=== PATIENT | female | born 1935 | race Hispanic/Latino ===

== ENCOUNTER 2016-07-17 23:12 | Emergency (ER) | payer MEDICARE, OTHER ==
[2016-07-17 23:12] VITALS: BMI 32.8
--- NOTE | 2016-07-18 00:08 | ED PDOC ---
HPI: General Adult Time Seen by Provider: 07/17/16 23:37 Chief Complaint (Nursing): GI Problem Chief Complaint (Provider): swallowed hearing aid History Per: Patient History/Exam Limitations: no limitations Onset/Duration Of Symptoms: Mins Additional History Per: Patient Additional Complaint(s): 81 y/o female presents for eval after swallowing her hearing aid. Patient states she thought she was taking her pill but forgot she had taken her hearing aid. Denies difficulty speaking, swallowing, chest pain, shortness of breath, palpitations. Patient notes nausea, and "pit" in her stomach. Past Medical History Reviewed: Historical Data, Nursing Documentation, Vital Signs Vital Signs: Last Vital Signs Temp 98 F 07/17/16 23:17 Pulse 70 07/17/16 23:17 Resp 18 07/17/16 23:17 BP 162/77 H 07/17/16 23: Pulse Ox 98 07/18/16 00:08 - Medical History PMH: Anemia, Anxiety, Arthritis, CAD, CHF, COPD, CVA, Diabetes, Deep Vein Thrombosis, Gall Bladder Disease, HTN, Hypercholesterolemia, Hypothyroidism, Peripheral Edema, Pneumonia, Chronic Kidney Disease (RENAL INSUFICIENCY), Sleep Apnea, TIA - Surgical History Surgical History: Cholecystectomy, Endoscopy - Family History Family History: States: Unknown Family Hx - Immunization History Hx Tetanus Toxoid Vaccination: Yes (received one year ago) Hx Influenza Vaccination: Yes Hx Pneumococcal Vaccination: No - Home Medications Home Medications: Ambulatory Orders Medication Instructions Recorded Clopidogrel [Plavix] 75 mg PO DAILY 05/16/13 Levothyroxine [Synthroid] 0.125 mg PO ACB 05/16/13 Rosuvastatin Calcium [Crestor] 20 mg PO HS 05/16/13 Sevelamer Carbonate [Renvela] 800 mg PO ACTID 05/16/13 Uloric 40 mg PO DAILY 02/27/14 Fenofibrate Nanocrystallized 145 mg PO HS 06/30/15 [Fenofibrate] Furosemide [Lasix] 40 mg PO BID 06/30/15 Losartan Potassium 25 mg PO DAILY 06/30/15 Multivit-Min/FA/Lycopen/Lutein 1 tab PO DAILY 06/30/15 [Centrum Silver Tablet] Vits A,C,E/Zinc/Copper [Ra 1 tab PO DAILY 06/30/15 Vision-Gurmeet + Zinc Tablet] Ergocalciferol (Vitamin D2) 50,000 unit PO QWK 03/07/16 [Vitamin D2] GlipiZIDE [Glucotrol] 10 mg PO BID 03/07/16 [id number]-[id number] Ethyl Esters [OMEGA 3] 2 cap PO BID 03/07/16 SITagliptin [Januvia] 100 mg PO DAILY 03/07/16 Docusate [Colace] 100 mg PO BID cap 03/16/16 Enoxaparin [Lovenox] 40 mg SC DAILY syr 03/16/16 Famotidine [Pepcid] 20 mg PO DAILY tab 03/16/16 - Allergies Allergies/Adverse Reactions: Allergies Allergy/AdvReac Type Severity Reaction Status Date / Time aspartame Allergy Verified 06/30/15 09:36 naproxen [From Naprosyn] Allergy Verified 06/30/15 09:35 esomeprazole magnesium AdvReac VOMITING Verified 06/30/15 07:31 [From Nexium] Review of Systems ROS Statement: Except As Marked, All Systems Reviewed And Found Negative Gastrointestinal: Positive for: Nausea, Abdominal Pain Physical Exam - Reviewed Nursing Documentation Reviewed: Yes Vital Signs Reviewed: Yes - Physical Exam Appears: Positive for: Well, Non-toxic, No Acute Distress Head Exam: Positive for: ATRAUMATIC, NORMAL INSPECTION, NORMOCEPHALIC Skin: Positive for: Normal Color Eye Exam: Positive for: Normal appearance ENT: Positive for: Normal ENT Inspection Cardiovascular/Chest: Positive for: Regular Rate, Rhythm Respiratory: Positive for: Normal Breath Sounds Gastrointestinal/Abdominal: Positive for: Normal Exam Back: Positive for: Normal Inspection Extremity: Positive for: Normal ROM Neurologic/Psych: Positive for: Alert, Oriented - ECG O2 Sat by Pulse Oximetry: 98 - Other Rad obstructive series X-Ray: Viewed By Sd X-Ray Interpretation: +FB passed level of pyloric sphincter - Progress ED Course And Treament: abdomen xray Patient educated on findings, discharged with instructions to follow up PMD 2-3 days. Advised to check stool for FB. Advised to return to ED for worsening/returning symptoms. Disposition - Clinical Impression Clinical Impression: Hx of swallowed foreign body - Patient ED Disposition Is Patient to be Admitted: No Counseled Patient/Family Regarding: Studies Performed, Diagnosis, Need For Followup - Disposition Referrals: Puneet Ramírez Jr., MD [Primary Care Provider] - Disposition: Routine/Home Disposition Time: 04:19 Condition: STABLE Additional Instructions: Follow up with primary doctor in 2-3 days. Return to ED for worsening/concerning symptoms. Instructions: Foreign Body Ingestion (ED)
[2016-07-18 04:19] VITALS: BP 145/85; PULSE 75; RESP 16; TEMP 97.9
[2016-07-18 04:20] VITALS: O2SAT 98
--- NOTE | 2016-07-18 15:08 | RAD ---
PROCEDURE: Radiographs of the chest and abdomen (obstructive series) HISTORY: swallowed hearing aid COMPARISON: No prior. TECHNIQUE: AP radiograph of the chest, with upright and supine radiographs of the abdomen. FINDINGS: CHEST: Lungs: Clear. Cardiovascular: Normal size heart. No pulmonary vascular congestion. Pleura: No pleural fluid. No pneumothorax. Other findings: None. ABDOMEN AND PELVIS: Bowel: Unremarkable bowel gas pattern. No evidence of mechanical obstruction. Free air: None. Bones: Unremarkable. Other findings: Radiopaque foreign body overlying the mid lumbar spine not associated with the adjacent lumbar vertebral bodies and likely representing ingested foreign body. IMPRESSION: Radiopaque foreign body likely within the stomach.
== END 2016-07-18 04:25 | disposition home or self-care (01) ==
LOC: H.ER 23:12
DX: T18.9XXA Foreign body of alimentary tract, part unspecified, initial encounter (principal); E11.22 Type 2 diabetes mellitus with diabetic chronic kidney disease; E78.00 Pure hypercholesterolemia, unspecified; F41.9 Anxiety disorder, unspecified; G47.30 Sleep apnea, unspecified; I12.9 Hypertensive chronic kidney disease with stage 1 through stage 4 chronic kidney disease, or unspecified chronic kidney disease; I25.10 Atherosclerotic heart disease of native coronary artery without angina pectoris; I50.9 Heart failure, unspecified; J44.9 Chronic obstructive pulmonary disease, unspecified; Z86.718 Personal history of other venous thrombosis and embolism; Z86.73 Personal history of transient ischemic attack (TIA), and cerebral infarction without residual deficits

== ENCOUNTER 2016-11-08 09:23 | Emergency (ER) | payer MEDICARE, OTHER ==
[2016-11-08 10:04] VITALS: BMI 21.5
[2016-11-08 10:08] VITALS: PULSE 77; RESP 20; TEMP 98; O2SAT 97
[2016-11-08] MEDS ORDERED: Oxycodone/Acetaminophen 5/325 mg Tab ONE (10:12)
--- NOTE | 2016-11-08 10:12 | ED PDOC ---
HPI: General Adult Time Seen by Provider: 11/08/16 09:46 Chief Complaint (Nursing): Back Pain Chief Complaint (Provider): Neck pain History Per: Patient ( ) History/Exam Limitations: no limitations Onset/Duration Of Symptoms: Days (yesterday) Current Symptoms Are (Timing): Still Present Additional Complaint(s): Pt. with neck pain that started when she moved suddenly in the morning yesterday while making pancakes. Pt. states pain goes up to the back of her head and into her upper back. No numbness, tingles, arm or leg pain, chest pain , dyspnea, fever, vision changes. No fall. Past Medical History Reviewed: Nursing Documentation, Vital Signs Vital Signs: Last Vital Signs Temp 98.0 F 11/08/16 09:48 Pulse 77 11/08/16 09:48 Resp 20 11/08/16 09:48 BP Pulse Ox 97 11/08/16 12:18 - Medical History PMH: Anemia, Anxiety, Arthritis, CAD, CHF, COPD, CVA, Diabetes, Deep Vein Thrombosis, Gall Bladder Disease, HTN, Hypercholesterolemia, Hypothyroidism, Peripheral Edema, Pneumonia, Chronic Kidney Disease (RENAL INSUFICIENCY), Sleep Apnea, TIA - Surgical History Surgical History: Cholecystectomy, Endoscopy - Family History Family History: States: Unknown Family Hx - Living Arrangements Living Arrangements: With Family - Social History Current smoker - smoking cessation education provided: No Alcohol: None Drugs: Denies - Immunization History Hx Tetanus Toxoid Vaccination: Yes (received one year ago) Hx Influenza Vaccination: Yes Hx Pneumococcal Vaccination: No - Home Medications Home Medications: Ambulatory Orders Medication Instructions Recorded Clopidogrel [Plavix] 75 mg PO DAILY 05/16/13 Levothyroxine [Synthroid] 0.125 mg PO ACB 05/16/13 Rosuvastatin Calcium [Crestor] 20 mg PO HS 05/16/13 Sevelamer Carbonate [Renvela] 800 mg PO ACTID 05/16/13 Uloric 40 mg PO DAILY 02/27/14 Fenofibrate Nanocrystallized 145 mg PO HS 06/30/15 [Fenofibrate] Furosemide [Lasix] 40 mg PO BID 06/30/15 Losartan Potassium 25 mg PO DAILY 06/30/15 Multivit-Min/FA/Lycopen/Lutein 1 tab PO DAILY 06/30/15 [Centrum Silver Tablet] Vits A,C,E/Zinc/Copper [Ra 1 tab PO DAILY 06/30/15 Vision-Gumreet + Zinc Tablet] Ergocalciferol (Vitamin D2) 50,000 unit PO QWK 03/07/16 [Vitamin D2] GlipiZIDE [Glucotrol] 10 mg PO BID 03/07/16 Russu-3-Zadm Ethyl Esters [OMEGA 3] 2 cap PO BID 03/07/16 SITagliptin [Januvia] 100 mg PO DAILY 03/07/16 Docusate [Colace] 100 mg PO BID cap 03/16/16 Enoxaparin [Lovenox] 40 mg SC DAILY syr 03/16/16 Famotidine [Pepcid] 20 mg PO DAILY tab 03/16/16 Diazepam [Valium] 2 mg PO BID PRN #6 tab 11/08/16 - Allergies Allergies/Adverse Reactions: Allergies Allergy/AdvReac Type Severity Reaction Status Date / Time aspartame Allergy RASH Verified 11/08/16 10:04 naproxen [From Naprosyn] Allergy RASH Verified 11/08/16 10:04 esomeprazole magnesium AdvReac VOMITING Verified 11/08/16 10:04 [From Nexium] Review of Systems ROS Statement: Except As Marked, All Systems Reviewed And Found Negative Musculoskeletal: Positive for: Neck Pain Neurological: Positive for: Headache Physical Exam - Reviewed Nursing Documentation Reviewed: Yes Vital Signs Reviewed: Yes - Physical Exam Appears: Positive for: Non-toxic, No Acute Distress Head Exam: Positive for: ATRAUMATIC, NORMAL INSPECTION, NORMOCEPHALIC Skin: Positive for: Normal Color, Warm, DRY Eye Exam: Positive for: EOMI, Normal appearance, PERRL ENT: Positive for: Normal ENT Inspection Neck: Positive for: Supple, Trachea Midline. Negative for: Painless ROM (pain to posterior neck diffuse and limited ROM due to pain) Cardiovascular/Chest: Positive for: Regular Rate, Rhythm Respiratory: Positive for: CNT, Normal Breath Sounds Gastrointestinal/Abdominal: Positive for: Normal Exam, Bowel Sounds, Soft. Negative for: Tenderness Back: Positive for: Normal Inspection. Negative for: L CVA Tenderness, R CVA Tenderness Extremity: Positive for: Normal ROM. Negative for: Tenderness, Pedal Edema Neurologic/Psych: Positive for: Alert, electrical instrument repairer II-XII, Oriented. Negative for: Motor/Sensory Deficits, Aphasia, Facial Droop - ECG O2 Sat by Pulse Oximetry: 97 Pulse Ox Interpretation: Normal - CT Scan/US ct Other Rad Studies (CT/US): Read By Radiologist Other Rad Interpretation: ct no acute findings - Progress ED Course And Treament: 1315: Stable. AAOx3. Pain improved. Moving neck. Daughter says she is much better. Fu with pcp. Rx. valium. [place] [employer] Aware evaluated. No findings for controlled substances. Pt. aware of addictive potential of valium. Aware of from it if consumed incorrectly. Disposition - Clinical Impression Clinical Impression: Torticollis - Patient ED Disposition Is Patient to be Admitted: No Counseled Patient/Family Regarding: Studies Performed, Diagnosis, Need For Followup, Rx Given - Disposition Referrals: [facility] [Outside] - 11/09/16 Disposition: Routine/Home Disposition Time: 13:27 Condition: STABLE Additional Instructions: Return if not better in 3 days. You are aware of the addictive potential of valium. You can or have decreased functioning from the medicine when used incorrectly. Prescriptions: Diazepam [Valium] 2 mg PO BID PRN #6 tab PRN Reason: Muscle Spasm Instructions: Muscle Spasm (ED)
[2016-11-08] MEDS: Oxycodone/Acetaminophen 5/325 mg Tab PO ONE (10:15)
--- NOTE | 2016-11-08 11:23 | CT ---
PROCEDURE: CT HEAD WITHOUT CONTRAST. HISTORY: headache COMPARISON: None available. TECHNIQUE: Axial computed tomography images were obtained through the head/brain without intravenous contrast. Radiation dose: Total exam DLP = 870.23 mGy-cm. This CT exam was performed using one or more of the following dose reduction techniques: Automated exposure control, adjustment of the mA and/or kV according to patient size, and/or use of iterative reconstruction technique. FINDINGS: HEMORRHAGE: No acute parenchymal, subarachnoid nor extra-axial hemorrhage. BRAIN: Large chronic infarct involving the left temporal lobe extending posteriorly and superiorly into the left posterior temporoparietal watershed zone involving some of the left parietal operculum. Overlying sulcal enlargement due to the aforementioned infarct. Questionable chronic ischemic changes in the left lateral elis. . Mild chronic periventricular white matter ischemic changes. Mild moderate generalized volume loss not withstanding. Minimal partially calcified atherosclerotic plaque changes both carotid siphons. VENTRICLES: There is mild asymmetry of the lateral ventricles left-sided which is slightly larger than the right likely due to ex vacuo dilatation secondary to the aforementioned infarct. No obstructive hydrocephalus. CALVARIUM: No acute calvarial fractures. PARANASAL SINUSES: Unremarkable as visualized. No significant inflammatory changes. MASTOID AIR CELLS: Unremarkable as visualized. No inflammatory changes. OTHER FINDINGS: Changes of bilateral cataract surgery. IMPRESSION: No acute intracranial hemorrhage. Large chronic left MCA territory branch infarct with overlying sulcal enlargement and ex vacuo dilatation of the left lateral ventricle. Questionable chronic ischemic changes left lateral elis. Mild chronic periventricular white matter ischemic changes. Mild moderate atrophy
--- NOTE | 2016-11-08 11:48 | CT ---
PROCEDURE: CT scan cervical spine 11/08/2016 HISTORY: Neck pain. Stiff neck COMPARISON: No prior TECHNIQUE: Axial computed tomography images were obtained of the cervical spine without the use of intravenous contrast. Coronal and sagittal reformatted images were created and reviewed. Radiation dose: Total exam DLP = 554.67 mGy-cm. This CT exam was performed using one or more of the following dose reduction techniques: Automated exposure control, adjustment of the mA and/or kV according to patient size, and/or use of iterative reconstruction technique. FINDINGS: VERTEBRAE: No acute compression fractures no retropulsed fragments. Vertebral bodies exhibit normal stature of. There is slight straightening of the normal mid and lower cervical lordosis which may in part be secondary to patient positioning in the gantry however underlying element of muscle spasm may contribute to clinic correlation. Vertebral bodies otherwise normally aligned. Facets also normally aligned. DISCS/SPINAL CANAL/NEURAL FORAMINA: Mild multilevel degenerative spondylosis. At the C2-C3 level, there is minor posterior disc space narrowing. Small osteophytic ridge contiguous with slightly overgrown uncovertebral joints right greater than left. The facets also hypertrophic. Central canal appears adequate. Right exit foramen is narrowed. Left exit foramen is marginal to adequate wound. . At the C3-C4 level, there is mild posterior disc space narrowing. No disc herniation however mildly hypertrophic uncovertebral joints right greater than left are noted. The facets also hypertrophic right greater than left. The overall central canal appears adequate despite some mild compressive effects along anterolateral borders of the thecal sac. The right exit foramen is stenotic. Left exit foramen is mildly narrowed. At the C4-C5 level, there is relatively adequate disc height. Small asymmetric osteophytic ridge disc complex larger on the right than left and contiguous with hypertrophic uncovertebral joints. There is mild compressive effects along the anterolateral border of the thecal sac appears to reach the right anterolateral margin of the spinal cord. The overall central canal appears adequate. Facets are hypertrophic. Right exit foramen is stenotic. Left exit foramen is mildly narrowed. At the C5-C6 level, disc space narrowing with cortical endplate irregularity and small osteophytic ridge disc complex contiguous with hypertrophic uncovertebral joints. Facets are hypertrophic. There is mild focal compression of the ventral surface of the thecal sac and possibly spinal cord centrally and to the right more so than left. The overall central canal however is adequate. Facets are mildly hypertrophic. Exit foramina appear narrowed. At the C6-C7 level, there is disc space narrowing with small broad-based osteophytic ridge disc complex that presumably flattens the ventral surface of the thecal sac and may also reach the ventral surface of the cord however due to mild streak and beam hardening artifact at this level evaluation slightly limited. . Prevertebral and paraspinal soft tissues unremarkable. There does appear to be mild pleural thickening and adjacent parenchymal scarring right anteromedial lung apex. . No evidence of effusion or apical pneumothorax PARASPINAL SOFT TISSUES: OTHER FINDINGS: As above. IMPRESSION: Mild multilevel degenerative spondylosis with varying degrees of foraminal stenosis on more so on the right as above. No acute compression fractures.
[2016-11-08 14:02] VITALS: BP 116/61
== END 2016-11-08 13:36 | disposition home or self-care (01) ==
LOC: H.ER 09:23
DX: M43.6 Torticollis (principal); E03.9 Hypothyroidism, unspecified; E11.22 Type 2 diabetes mellitus with diabetic chronic kidney disease; E78.00 Pure hypercholesterolemia, unspecified; F41.9 Anxiety disorder, unspecified; I12.9 Hypertensive chronic kidney disease with stage 1 through stage 4 chronic kidney disease, or unspecified chronic kidney disease; I25.10 Atherosclerotic heart disease of native coronary artery without angina pectoris; Z86.718 Personal history of other venous thrombosis and embolism; Z86.73 Personal history of transient ischemic attack (TIA), and cerebral infarction without residual deficits
CPT/HCPCS: 70450; 72125; 96372; 99283; J2270

== ENCOUNTER 2017-10-19 16:42 | Inpatient (IN) | payer MEDICARE, OTHER ==
--- NOTE | 2017-10-19 18:55 | ED PDOC ---
Lower Extremity Pain/Injury Time Seen by Provider: 10/19/17 17:53 Chief Complaint (Nursing): Lower Extremity Problem/Injury Chief Complaint (Provider): Lower Extremity Problem/Injury History Per: Patient History/Exam Limitations: no limitations Onset/Duration Of Symptoms: Persistent Current Symptoms Are (Timing): Still Present Additional Complaint(s): 82 year old female with pmHx of CVA, HTN, DM II, and DVT of the RLE, referred to ED by PMD for an evaluation of worsening pain and swelling of bilateral legs. Patient states symptoms are exacerbated with touch and walking. She denies any shortness of breath, palpitations, cough, fever, nausea, vomiting, or diarrhea. Upon entering room, patient had her prescription bottles lined up on a table and tried to explain to provider the times and reasons for medications. It appears patient is confused about which pills to take for her medical conditions i.e. patient states that she "takes Januvia when she doesn't want to pee". Patient additionally reports having a home-health aid but otherwise lives alone and manages her medications daily. Referral note from PMD states pt has known right DVT. PMD: Dr. Puneet Ramírez Jr. Past Medical History Reviewed: Historical Data, Nursing Documentation, Vital Signs Vital Signs: Last Vital Signs Temp Pulse 79 10/19/17 16:52 Resp 19 10/19/17 16:52 BP 151/75 H 10/19/17 16:52 Pulse Ox 98 10/19/17 16:52 - Medical History PMH: Anemia, Anxiety, Arthritis, CAD, CHF, COPD, CVA, Dementia, Diabetes, Deep Vein Thrombosis (RLE), Gall Bladder Disease, HTN, Hypercholesterolemia, Hypothyroidism, Peripheral Edema, Pneumonia, Chronic Kidney Disease (RENAL INSUFICIENCY), Sleep Apnea, TIA - Surgical History Surgical History: Cholecystectomy, Endoscopy - Family History Family History: States: Unknown Family Hx - Immunization History Hx Tetanus Toxoid Vaccination: Yes (received one year ago) Hx Influenza Vaccination: Yes Hx Pneumococcal Vaccination: No - Home Medications Home Medications: Ambulatory Orders Medication Instructions Recorded Clopidogrel [Plavix] 75 mg PO DAILY 05/16/13 Levothyroxine [Synthroid] 0.125 mg PO ACB 05/16/13 Rosuvastatin Calcium [Crestor] 20 mg PO HS 05/16/13 Sevelamer Carbonate [Renvela] 800 mg PO ACTID 05/16/13 Uloric 40 mg PO DAILY 02/27/14 Fenofibrate Nanocrystallized 145 mg PO HS 06/30/15 [Fenofibrate] Furosemide [Lasix] 40 mg PO BID 06/30/15 Losartan Potassium 25 mg PO DAILY 06/30/15 Multivit-Min/FA/Lycopen/Lutein 1 tab PO DAILY 06/30/15 [Centrum Silver Tablet] Vits A,C,E/Zinc/Copper [Ra 1 tab PO DAILY 06/30/15 Vision-Gurmeet + Zinc Tablet] Ergocalciferol (Vitamin D2) 50,000 unit PO QWK 03/07/16 [Vitamin D2] GlipiZIDE [Glucotrol] 10 mg PO BID 03/07/16 Cegqw-5-Zlxi Ethyl Esters [OMEGA 3] 2 cap PO BID 03/07/16 SITagliptin [Januvia] 100 mg PO DAILY 03/07/16 Docusate [Colace] 100 mg PO BID cap 03/16/16 Famotidine [Pepcid] 20 mg PO DAILY tab 03/16/16 Methylprednisolone [Medrol Dose 4 mg PO DAILY #21 mg 11/11/16 Pack (21 tabs)] diaZEpam [Valium] 5 mg PO Q6H PRN #8 tab 11/11/16 - Allergies Allergies/Adverse Reactions: Allergies Allergy/AdvReac Type Severity Reaction Status Date / Time aspartame Allergy RASH Verified 09/07/17 22:16 naproxen [From Naprosyn] Allergy RASH Verified 09/07/17 22:16 esomeprazole magnesium AdvReac VOMITING Verified 09/07/17 22:16 [From Nexium] Review of Systems ROS Statement: Except As Marked, All Systems Reviewed And Found Negative Cardiovascular: Negative for: Palpitations Respiratory: Negative for: Cough, Shortness of Breath Gastrointestinal: Negative for: Nausea, Vomiting, Diarrhea Musculoskeletal: Positive for: Leg Pain (bilaterally with swelling) Physical Exam - Reviewed Nursing Documentation Reviewed: Yes Vital Signs Reviewed: Yes - Physical Exam Appears: Positive for: No Acute Distress ENT: Positive for: Other ([employer] - had to shout towards patient) Cardiovascular/Chest: Positive for: Regular Rate, Rhythm. Negative for: Murmur Respiratory: Positive for: Normal Breath Sounds. Negative for: Decreased Breath Sounds, Wheezing, Respiratory Distress Extremity: Positive for: Tenderness (bilateral legs on palpation), Pedal Edema ( 2+ pitting bilaterally from knees to feet) Neurologic/Psych: Positive for: Alert (x3), Oriented - Laboratory Results Result Diagrams: 10/20/17 06:45 10/21/17 06:30 - ECG O2 Sat by Pulse Oximetry: 98 (RA) Pulse Ox Interpretation: Normal Medical Decision Making Medical Decision Making: Time: 1826 Initial Plan: workup for bilateral leg edema r/o DVT. Possible fluid overload, however, lungs are clear on auscultation. * Labs * EKG * CXR * Accucheck * US duplex LE (BONNIE) Time: 1899 --Patient is sign out to Dr. Ventura, pending ED workup and final disposition. Scribe Attestation: Documented by Adriana Escalera, acting as a scribe for Chaya Ramos MD. Provider Scribe Attestation: All medical record entries made by the Scribe were at my direction and personally dictated by me. I have reviewed the chart and agree that the record accurately reflects my personal performance of the history, physical exam, medical decision making, and the department course for this patient. I have also personally directed, reviewed, and agree with the discharge instructions and disposition. Disposition - Clinical Impression Clinical Impression: Cellulitis of left lower extremity - Disposition Disposition: Transfer of Care Disposition Time: 19:00 Condition: FAIR Patient Signed Over To: Bernard Ventura Handoff Comments: pending ED workup and final disposition.
[2017-10-19 19:04] LABS: PROTHROMBIN TIME 11.5 Seconds (9.8-13.1)
[2017-10-19 19:06] LABS: PARTIAL THROMBOPLASTIN TIME 27.8 Seconds (25.6-37.1)
[2017-10-19 19:07] LABS: VENOUS BLOOD GAS BASE EXCESS 4.5 mmol/L (0.0-2.0); VENOUS BLOOD GAS PCO2 54 mmHg (40-60); VENOUS BLOOD GAS PO2 20 mm/Hg (30-55); VENOUS BLOOD PH 7.37 (7.32-7.43)
[2017-10-19 19:07] LABS: CALCIUM 10.1 mg/dL (8.4-10.2)
[2017-10-19 19:09] LABS: BASO % 0.2 % (0.0-2.0); EOS % 0.1 % (0.0-4.0); HEMOGLOBIN 13.7 g/dL (12.0-16.0); LYMPH % 10.5 % (20.0-40.0); MEAN CELL VOLUME 93.9 fl (81.0-99.0); MEAN CORPUSCULAR HGB CONC 34.1 g/dL (33.0-37.0); MEAN PLATELET VOLUME 9.3 fl (7.2-11.7); MONO # 0.2 K/uL (0.0-0.8); NEUT # 8.2 K/uL (1.8-7.0); NEUT % 87.2 % (50.0-75.0); RBC 4.27 Mil/uL (3.80-5.20); RED CELL DISTRIBUTION WIDTH 12.9 % (11.5-14.5); WHITE BLOOD COUNT 9.4 K/uL (4.8-10.8)
--- NOTE | 2017-10-19 19:35 | ED PDOC ---
- Laboratory Results Result Diagrams: 10/19/17 18:54 10/19/17 18:54 - ECG O2 Sat by Pulse Oximetry: 98 (RA) Medical Decision Making Medical Decision Making: Time: 1899 --Patient is endorsed to provider by Dr. Ramos, pending lab and US results. Time: 2102 --US LE (claudine) FINDINGS: Right deep veins: Unremarkable. No DVT in the right common femoral, femoral, proximal deep femoral or popliteal veins. The veins demonstrate normal color flow, are normally compressible, with normal phasic flow and/or augmentation response. Right superficial veins: Unremarkable. No thrombus in the visualized left great saphenous vein. Left deep veins: Unremarkable. No DVT in the left common femoral, femoral, proximal deep femoral or popliteal veins. The veins demonstrate normal color flow, are normally compressible, with normal phasic flow and/or augmentation response. Left superficial veins: Unremarkable. No thrombus in the visualized left great saphenous vein. Soft tissues: Right popliteal cyst measures 1.3 x 1.6 x 0.5 cm. Left popliteal cyst measures 2.1 x 0.7 x 0.8. Superficial soft tissue right calf lateral soft tissue focal hypoattenuation measures 2.9 x 1 x 2 cm without evidence of drainable fluid. IMPRESSION: 1. No deep venous thrombosis of the bilateral lower extremities. 2. Small bilateral popliteal cysts. 3. Superficial right calf lateral soft tissue focal hypoattenuation measures 2.9 x 1 x 2 cm. Please correlate clinically for potential cellulitis. Time: 2149 --Re-eval: large lesion noted on right heel. Daughter, presently at bed-side, states that lesion has been present for 2 weeks with evaluation. Podiatry consult ordered. Time: 2153 --Labs reviewed: no significant clinical abnormality. Upon re-evaluation, patient has erythema, warmth and induration to left foot to mid-tibia surface consistent with cellulits of the LLE. Patient will be admitted to hospital. Case referred to medical service, Dr. Delcid. Scribe Attestation: Documented by Adriana Escalera, acting as a scribe for Bernard Ventura MD. Provider Scribe Attestation: All medical record entries made by the Scribe were at my direction and personally dictated by me. I have reviewed the chart and agree that the record accurately reflects my personal performance of the history, physical exam, medical decision making, and the department course for this patient. I have also personally directed, reviewed, and agree with the discharge instructions and disposition.Bernard Ventura MD Disposition Discussed With DrKye: Ciro Delcid Doctor Will See Patient In The: Hospital Counseled Patient/Family Regarding: Studies Performed, Diagnosis, Need For Followup - Clinical Impression Clinical Impression: Cellulitis of left lower extremity - POA Present On Arrival: None - Disposition Disposition: Admitted as In-Patient Disposition Time: 21:50 Condition: FAIR Forms: [email or web address] (Turkmen)
[2017-10-19 21:41] LABS: SQUAMOUS EPITHIAL < 1 /hpf (0-5); URINE BACTERIA RARE (<OCC); URINE BILIRUBIN NEGATIVE (NEGATIVE); URINE BLOOD NEGATIVE (NEGATIVE); URINE CLARITY CLEAR (Clear); URINE COLOR STRAW (YELLOW); URINE GLUCOSE (UA) >=500 mg/dL (Normal); URINE HYALINE CAST 0-2 /hpf (0-2); URINE LEUKOCYTE ESTERASE NEG Leu/uL (Negative); URINE PROTEIN NEGATIVE (NEGATIVE); URINE UROBILINOGEN 0.2-1.0 mg/dL (0.2-1.0)
[2017-10-19] MEDS ORDERED: Piperacillin/Tazobact 3.375 GM in Sodium Chloride 0.9% 100 ML IV STA (21:42)
[2017-10-19] MEDS ORDERED: Piperacillin/Tazobact 3.375 gm Inj IVPB ONE (21:58)
[2017-10-20] MEDS: Insulin Lispro (humaLOG) 100 Units/ml Inj SC SCH ×4 (06:38→22:18)
[2017-10-20 07:05] LABS: HEMOGLOBIN 12.1 g/dL (12.0-16.0); MEAN CELL VOLUME 93.1 fl (81.0-99.0); MEAN CORPUSCULAR HEMOGLOBIN 31.2 pg (27.0-31.0); MEAN CORPUSCULAR HGB CONC 33.5 g/dL (33.0-37.0); RBC 3.89 Mil/uL (3.80-5.20); RED CELL DISTRIBUTION WIDTH 12.7 % (11.5-14.5); WHITE BLOOD COUNT 12.8 K/uL (4.8-10.8)
[2017-10-20 07:14] LABS: ALB/GLOB RATIO 1.5 (1.0-2.1); ALBUMIN 3.9 g/dL (3.5-5.0); CALCIUM 9.8 mg/dL (8.4-10.2)
--- NOTE | 2017-10-20 08:05 | RAD ---
Date of service: 10/19/2017 HISTORY: possible admission COMPARISON: No prior. FINDINGS: LUNGS: No active pulmonary disease. PLEURA: No significant pleural effusion identified, no pneumothorax apparent. CARDIOVASCULAR: Normal. OSSEOUS STRUCTURES: No significant abnormalities. VISUALIZED UPPER ABDOMEN: Normal. OTHER FINDINGS: None. IMPRESSION: No active disease.
[2017-10-20] MEDS: Piperacillin/Tazobact 3.375 GM in Sodium Chloride 0.9% 100 ML IVPB SCH ×2 (08:53→16:53)
[2017-10-20] MEDS ORDERED: Enoxaparin 30 mg Syringe SC SCH (09:00)
--- NOTE | 2017-10-20 09:20 | CARD ---
APPROVED REPORT Date of service: 10/19/2017 EKG Measurement Heart [id number] <Conclusion> Normal sinus rhythm Nonspecific ST and T wave abnormality Abnormal ECG
[2017-10-20] MEDS ORDERED: ULORIC 40 MG PO SCH (13:00)
[2017-10-20] MEDS: Insulin Detemir 100 Units/ml Inj SC SCH (22:00)
[2017-10-21] MEDS: Piperacillin/Tazobact 3.375 GM in Sodium Chloride 0.9% 100 ML IVPB SCH ×3 (01:07→16:10)
[2017-10-21] MEDS: Levothyroxine 125 MCG TAB PO SCH (06:30)
[2017-10-21 07:33] LABS: ALB/GLOB RATIO 1.5 (1.0-2.1); ALBUMIN 3.5 g/dL (3.5-5.0); CALCIUM 9.4 mg/dL (8.4-10.2)
[2017-10-21] MEDS: Insulin Lispro (humaLOG) 100 Units/ml Inj SC SCH ×4 (08:21→22:06)
[2017-10-21 11:32] VITALS: BMI 31.6
[2017-10-21] MEDS: Omega-3-Acid Ethyl Esters 1 GM Cap PO SCH (21:22)
[2017-10-21] MEDS: VITS A C E PO SCH (21:23)
[2017-10-21] MEDS: ZINC PO SCH (21:23)
[2017-10-21] MEDS: COPPER PO SCH (21:23)
[2017-10-21] MEDS: Insulin Detemir 100 Units/ml Inj SC SCH (22:10)
[2017-10-22] MEDS: Piperacillin/Tazobact 3.375 GM in Sodium Chloride 0.9% 100 ML IVPB SCH ×3 (00:18→16:22)
[2017-10-22] MEDS: Levothyroxine 125 MCG TAB PO SCH (06:49)
[2017-10-22] MEDS: Insulin Lispro (humaLOG) 100 Units/ml Inj SC SCH ×4 (08:26→22:25)
[2017-10-22] MEDS: Omega-3-Acid Ethyl Esters 1 GM Cap PO SCH ×2 (08:29→21:02)
[2017-10-22] MEDS: Multivitamin With Minerals Tab PO SCH (08:30)
[2017-10-22] MEDS: VITS A C E PO SCH ×2 (08:30→21:02)
[2017-10-22] MEDS: ZINC PO SCH ×2 (08:30→21:02)
[2017-10-22] MEDS: COPPER PO SCH ×2 (08:30→21:02)
--- NOTE | 2017-10-22 10:13 | US ---
Date of service: 10/19/2017 PROCEDURE: Bilateral lower extremity venous duplex Doppler. HISTORY: rule out DVT BL COMPARISON: None available. TECHNIQUE: Bilateral common femoral, superficial femoral, popliteal and posterior tibial veins were evaluated. Flow was assessed with color Doppler, compressibility, assessment of phasic flow and augmentation response. FINDINGS: COMMON FEMORAL VEIN: Right CFV: Unremarkable. Left CFV: Unremarkable. SUPERFICIAL FEMORAL VEIN: Right SFV: Unremarkable. Left SFV: Unremarkable. POPLITEAL VEIN: Right Popliteal: Unremarkable. Left Popliteal: Unremarkable. POSTERIOR TIBIAL VEIN: Right PTV: Unremarkable. Left PTV: Unremarkable. OTHER FINDINGS: There is evidence of small bilateral popliteal cyst. Popliteal cyst on the right measures 1.3 x 1.6 x 0.5 centimeters. Popliteal cyst on the left measures 2.1 x 0.7 x 0.8 centimeters. In addition there is a nonspecific area of irregular hypoechoic echogenicity in the medial right mid calf region measuring 2.9 x 1 x 1 2 centimeters. This may reflect a focal area of cellulitis or other inflammatory/infectious process and should be correlated clinically. IMPRESSION: No evidence of deep venous thrombosis. Nonspecific area of hypo echogenicity in the soft tissues of the medial right calf. Finding may reflect cellulitis or other early infection such as abscess although no focal fluid collection was seen. This should be further correlated clinically. MRI may prove helpful as clinically indicated. This agrees with preliminary report provided by the on-call radiologist. Emergency room position was notified of this finding at the time of the preliminary report.
--- NOTE | 2017-10-22 15:25 | US ---
Date of service: 10/20/2017 PROCEDURE: Duplex ultrasound of the bilateral lower extremity arteries. HISTORY: leg pain COMPARISON: None available. TECHNIQUE: Grayscale and duplex Doppler evaluation of the bilateral common femoral, superficial femoral, popliteal, posterior tibial and dorsalis pedis arteries was performed.. FINDINGS: RIGHT LOWER EXTREMITY: RIGHT COMMON FEMORAL ARTERY: Mild intimal thickening. Maximal flow velocity of 121 cm/s. RIGHT SUPERFICIAL FEMORAL ARTERY: Widely patent. Maximal flow velocity of 147 cm/s. RIGHT POPLITEAL ARTERY:Widely patent. Maximal flow velocity of 102 cm/s. RIGHT POSTERIOR TIBIAL ARTERY: Widely patent. Maximal flow velocity of 68 cm/s. RIGHT DORSALIS PEDIS ARTERY: Widely patent. Maximal flow velocity of 89 cm/s. LEFT LOWER EXTREMITY: LEFT COMMON FEMORAL ARTERY: Mild intimal thickening. Maximal flow velocity of 110 cm/s. LEFT SUPERFICIAL FEMORAL ARTERY: Widely patent. Maximal flow velocity of 137 cm/s. LEFT POPLITEAL ARTERY:Widely patent. Maximal flow velocity of 94 cm/s. LEFT POSTERIOR TIBIAL ARTERY: Widely patent. Maximal flow velocity of 76 cm/s. LEFT DORSALIS PEDIS ARTERY: Widely patent. Maximal flow velocity of 110 cm/s. OTHER FINDINGS: All triphasic flow throughout both extremities. IMPRESSION: All triphasic flow. Velocities are within normal limits. No peak systolic velocity elevation to suggest hemodynamic stenosis.
[2017-10-22] MEDS: Enoxaparin 30 mg Syringe SC SCH (16:22)
[2017-10-22] MEDS: Insulin Detemir 100 Units/ml Inj SC SCH (22:32)
--- NOTE | 2017-10-22 23:53 | CP.PCM.HP ---
History of Present Illness - History of Present Illness History of Present Illness: This is an 82 y/o female admitted for worsening of leg pains left more than the right the past two weeks. Patient has a known DVT on the right leg Has a hx of DM 2 PVD? , HTN Hyperlipidemia , renal insufficiency, and CHF? Currently on a lot of medications. She had seen her PMD who noted increase swelling and redness of the left leg hence was advised Er eval. She denies having any fever. Present on Admission - Present on Admission Any Indicators Present on Admission: No History of DVT/PE: No History of Uncontrolled Diabetes: Yes Urinary Catheter: No Decubitus Ulcer Present: No Review of Systems - Musculoskeletal Additional comments: leg pains Past Patient History - Infectious Disease Hx of Infectious Diseases: None - Tetanus Immunizations Tetanus Immunization: Unknown - Past Medical History & Family History Past Medical History?: Yes - Past Social History Smoking Status: Never Smoked - CARDIAC Hx Congestive Heart Failure: Yes Hx Hypercholesterolemia: Yes Hx Hypertension: Yes Hx Peripheral Edema: Yes - PULMONARY Hx Chronic Obstructive Pulmonary Disease (COPD): Yes Hx Pneumonia: Yes Hx Sleep Apnea: Yes - NEUROLOGICAL Hx Dementia: Yes Hx Transient Ischemic Attacks (TIA): Yes - HEENT Hx HEENT Problems: Yes Other/Comment: Both ears hard of hearing - RENAL Hx Chronic Kidney Disease: Yes (RENAL INSUFICIENCY) - ENDOCRINE/METABOLIC Hx Hypothyroidism: Yes - HEMATOLOGICAL/ONCOLOGICAL Hx Anemia: Yes - INTEGUMENTARY Hx Dermatological Problems: Yes Hx Ward: Yes (SCARRING RIGHT HAND) Hx Cellulitis: Yes Other/Comment: SURGICAL TREATMENT TO RIGHT LOWER LEG, UNSURE OF EXACT DIAGNOSIS - MUSCULOSKELETAL/RHEUMATOLOGICAL Hx Arthritis: Yes - GASTROINTESTINAL Hx Gall Bladder Disease: Yes - GENITOURINARY/GYNECOLOGICAL Hx Genitourinary Disorders: No - PSYCHIATRIC Hx Anxiety: Yes - SURGICAL HISTORY Hx Cholecystectomy: Yes - ANESTHESIA Hx Anesthesia: Yes Hx Anesthesia Reactions: No Hx Malignant Hyperthermia: No Meds Home Medications: Home Medication List Medication Instructions Recorded Confirmed Type Piperacill/Tazo 3.375gm in Dex 3.375 gm IVPB Q8 7 Days bag 10/23/17 Rx [Zosyn 3.375 Gm IV] Allergies/Adverse Reactions: Allergies Allergy/AdvReac Type Severity Reaction Status Date / Time aspartame Allergy RASH Verified 10/23/17 16:53 naproxen [From Naprosyn] Allergy RASH Verified 10/23/17 16:53 esomeprazole magnesium AdvReac VOMITING Verified 10/23/17 16:53 [From Nexium] Physical Exam - Head Exam Head Exam: NORMAL INSPECTION - Eye Exam Eye Exam: Normal appearance - ENT Exam ENT Exam: Mucous Membranes Moist - Respiratory Exam Respiratory Exam: NORMAL BREATHING PATTERN - Cardiovascular Exam Cardiovascular Exam: REGULAR RHYTHM - GI/Abdominal Exam GI & Abdominal Exam: Normal Bowel Sounds - Extremities Exam Extremities exam: Positive for: joint swelling Additional comments: tenderness posterior left lower leg just below calf muscle - Neurological Exam Neurological exam: CN II-XII Intact, Oriented x3 Results - Vital Signs Recent Vital Signs: Last Vital Signs Temp 98 F 10/22/17 16:08 Pulse 52 L 10/22/17 16:08 Resp 20 10/22/17 16:08 BP 111/67 10/22/17 16:08 Pulse Ox 95 10/22/17 16:08 - Labs Result Diagrams: 10/23/17 06:25 10/23/17 06:25 Labs: Laboratory Results - last 24 hr 10/22/17 10/22/17 10/22/17 06:04 10:55 16:05 POC Glucose (mg/dL) 147 H 272 H 104 10/22/17 21:11 POC Glucose (mg/dL) 144 H Assessment & Plan (1) Cellulitis of left lower extremity Status: Acute (2) Diabetes mellitus type 2, uncontrolled Status: Acute (3) Hypertension Status: Acute (4) Hypertriglyceridemia Status: Acute (5) Hyperlipidemia Status: Chronic - Assessment and Plan (Free Text) Plan: start IV antibiotics get US venous and arterial doppler lower ext accucheck adjust meds decrease lasix start phys therapy pain meds.
--- NOTE | 2017-10-22 23:56 | CP.PCM.PN ---
Subjective - Date & Time of Evaluation Date of Evaluation: 10/21/17 Time of Evaluation: 13:00 - Subjective Subjective: Patient continues to have pain on the left leg. tender to touch. Arterial and venous doppler showed possible cellulitis. There was no evidence of DVT. Objective - Vital Signs/Intake and Output Vital Signs (last 24 hours): Temp Pulse Resp BP Pulse Ox 98 F 52 L 20 111/67 95 10/22/17 16:08 10/22/17 16:08 10/22/17 16:08 10/22/17 16:08 10/22/17 16:08 - Medications Medications: Current Medications Atorvastatin Calcium (Lipitor) 20 mg PO [facility] Last Admin: 10/22/17 21:02 Dose: 20 mg Clopidogrel Bisulfate (Plavix) 75 mg PO DAILY [facility] Last Admin: 10/22/17 08:29 Dose: 75 mg Enoxaparin Sodium (Lovenox) 30 mg SC DAILY [facility] PRN Reason: Protocol Last Admin: 10/22/17 16:22 Dose: 30 mg Ergocalciferol (Drisdol 50,000 Intl Units Cap) 1 cap PO QWK [facility] Fenofibrate (Tricor) 145 mg PO [facility] Last Admin: 10/22/17 21:02 Dose: 145 mg Furosemide (Lasix) 40 mg PO DAILY [facility] Last Admin: 10/22/17 08:28 Dose: 40 mg Glipizide (Glucotrol) 10 mg PO ACB [facility] Last Admin: 10/22/17 08:26 Dose: 10 mg Home Med (Uloric) 40 mg PO QOD [facility] Home Med (Vits A,C,E/Zinc/Copper [Ra Vision-Gurmeet + Zinc Tablet]) 1 tab PO BID@ 0900,2100 [facility] Last Admin: 10/22/17 21:02 Dose: 1 tab Piperacillin Sod/Tazobactam (Sod 3.375 gm/ Sodium Chloride) 100 mls @ 100 mls/ hr IVPB Q8 [facility] PRN Reason: Protocol Last Admin: 10/22/17 16:22 Dose: 100 mls/hr Insulin Detemir (Levemir) 10 units SC [facility] Last Admin: 10/22/17 22:32 Dose: 10 u Insulin Human Lispro (Humalog) 0 units SC ACCU-CHECK [facility] PRN Reason: Protocol Last Admin: 10/22/17 22:25 Dose: Not Given Levothyroxine Sodium (Synthroid) 125 mcg PO ACB [facility] Last Admin: 10/22/17 06:49 Dose: 125 mcg Multivitamins/Minerals (Therapeutic-M Tab) 1 tab PO DAILY [facility] Last Admin: 10/22/17 08:30 Dose: 1 tab Ozbfs-4-Xalu Ethyl Esters (Lovaza) 2 gm PO BID@0900,2100 [facility] Last Admin: 10/22/17 21:02 Dose: 2 gm Sevelamer Carbonate (Renvela) 800 mg PO ACTID [facility] Last Admin: 10/22/17 16:22 Dose: 800 mg Sitagliptin Phosphate (Januvia) 50 mg PO DAILY [facility] Last Admin: 10/22/17 08:28 Dose: 50 mg - Labs Labs: 10/20/17 06:45 10/21/17 06:30 PT 11.5 Seconds (9.8-13.1) 10/19/17 18:54 INR 1.0 10/19/17 18:54 APTT 27.8 Seconds (25.6-37.1) 10/19/17 18:54 - Head Exam Head Exam: NORMAL INSPECTION - Eye Exam Eye Exam: Normal appearance - Respiratory Exam Respiratory Exam: Clear to Ausculation Bilateral - Cardiovascular Exam Cardiovascular Exam: REGULAR RHYTHM - GI/Abdominal Exam GI & Abdominal Exam: Normal Bowel Sounds - Extremities Exam Additional comments: tenderness on the posterior aspect of the left lower leg just below the calf muscle. - Neurological Exam Neurological Exam: Awake, Oriented x3 Assessment and Plan (1) Cellulitis of left lower extremity Status: Acute (2) DJD (degenerative joint disease) Status: Acute (3) Diabetes mellitus type 2, uncontrolled Status: Acute (4) CKD stage 3 due to type 2 diabetes mellitus Status: Acute - Assessment and Plan (Free Text) Plan: Cont meds cont tx cont iv antibiotics phys therapy pain meds.
--- NOTE | 2017-10-22 23:58 | CP.PCM.PN ---
Subjective - Date & Time of Evaluation Date of Evaluation: 10/22/17 Time of Evaluation: 12:00 - Subjective Subjective: Patient has less pain today Noted elevated WBC the other day Has no fever. arterial US showed patent arteries and no sx of PAD, Objective - Vital Signs/Intake and Output Vital Signs (last 24 hours): Temp Pulse Resp BP Pulse Ox 98 F 52 L 20 111/67 95 10/22/17 16:08 10/22/17 16:08 10/22/17 16:08 10/22/17 16:08 10/22/17 16:08 - Medications Medications: Current Medications Atorvastatin Calcium (Lipitor) 20 mg PO HS [facility] Last Admin: 10/22/17 21:02 Dose: 20 mg Clopidogrel Bisulfate (Plavix) 75 mg PO DAILY [facility] Last Admin: 10/22/17 08:29 Dose: 75 mg Enoxaparin Sodium (Lovenox) 30 mg SC DAILY [facility] PRN Reason: Protocol Last Admin: 10/22/17 16:22 Dose: 30 mg Ergocalciferol (Drisdol 50,000 Intl Units Cap) 1 cap PO QWK [facility] Fenofibrate (Tricor) 145 mg PO HS [facility] Last Admin: 10/22/17 21:02 Dose: 145 mg Furosemide (Lasix) 40 mg PO DAILY [facility] Last Admin: 10/22/17 08:28 Dose: 40 mg Glipizide (Glucotrol) 10 mg PO ACB [facility] Last Admin: 10/22/17 08:26 Dose: 10 mg Home Med (Uloric) 40 mg PO QOD [facility] Home Med (Vits A,C,E/Zinc/Copper [Ra Vision-Gurmeet + Zinc Tablet]) 1 tab PO BID@ 0900,2100 [facility] Last Admin: 10/22/17 21:02 Dose: 1 tab Piperacillin Sod/Tazobactam (Sod 3.375 gm/ Sodium Chloride) 100 mls @ 100 mls/ hr IVPB Q8 [facility] PRN Reason: Protocol Last Admin: 10/22/17 16:22 Dose: 100 mls/hr Insulin Detemir (Levemir) 10 units SC [facility] Last Admin: 10/22/17 22:32 Dose: 10 u Insulin Human Lispro (Humalog) 0 units SC ACCU-CHECK [facility] PRN Reason: Protocol Last Admin: 09/03/18 22:25 Dose: Not Given Levothyroxine Sodium (Synthroid) 125 mcg PO ACB [facility] Last Admin: 10/22/17 06:49 Dose: 125 mcg Multivitamins/Minerals (Therapeutic-M Tab) 1 tab PO DAILY [facility] Last Admin: 10/22/17 08:30 Dose: 1 tab Nkuix-0-Dgsl Ethyl Esters (Lovaza) 2 gm PO BID@0900,2100 [facility] Last Admin: 10/22/17 21:02 Dose: 2 gm Sevelamer Carbonate (Renvela) 800 mg PO ACTID [facility] Last Admin: 10/22/17 16:22 Dose: 800 mg Sitagliptin Phosphate (Januvia) 50 mg PO DAILY [facility] Last Admin: 10/22/17 08:28 Dose: 50 mg - Labs Labs: 10/20/17 06:45 10/21/17 06:30 PT 11.5 Seconds (9.8-13.1) 10/19/17 18:54 INR 1.0 10/19/17 18:54 APTT 27.8 Seconds (25.6-37.1) 10/19/17 18:54 - Head Exam Head Exam: NORMAL INSPECTION - Eye Exam Eye Exam: Normal appearance - Respiratory Exam Respiratory Exam: Clear to Ausculation Bilateral, NORMAL BREATHING PATTERN - Cardiovascular Exam Cardiovascular Exam: REGULAR RHYTHM - GI/Abdominal Exam GI & Abdominal Exam: Normal Bowel Sounds - Extremities Exam Additional comments: decreased tenderness on the left lower leg - Neurological Exam Neurological Exam: Awake, Oriented x3 Assessment and Plan (1) Cellulitis of left lower extremity Status: Acute (2) CKD stage 3 due to type 2 diabetes mellitus Status: Acute (3) DJD (degenerative joint disease) Status: Acute (4) Diabetes mellitus type 2, uncontrolled Status: Acute (5) Hypertension Status: Acute - Assessment and Plan (Free Text) Plan: Cont meds Con ttx Cont PT Discharge plan to TCU
[2017-10-23] MEDS: Piperacillin/Tazobact 3.375 GM in Sodium Chloride 0.9% 100 ML IVPB SCH ×2 (00:30→08:35)
[2017-10-23] MEDS: Levothyroxine 125 MCG TAB PO SCH (06:33)
[2017-10-23 07:14] LABS: HEMOGLOBIN 11.7 g/dL (12.0-16.0); MEAN CELL VOLUME 93.4 fl (81.0-99.0); MEAN CORPUSCULAR HEMOGLOBIN 31.3 pg (27.0-31.0); MEAN CORPUSCULAR HGB CONC 33.5 g/dL (33.0-37.0); RBC 3.75 Mil/uL (3.80-5.20); WHITE BLOOD COUNT 9.6 K/uL (4.8-10.8)
[2017-10-23 07:20] LABS: CALCIUM 9.3 mg/dL (8.4-10.2)
[2017-10-23] MEDS: Omega-3-Acid Ethyl Esters 1 GM Cap PO SCH (08:23)
[2017-10-23] MEDS: Enoxaparin 30 mg Syringe SC SCH (08:23)
[2017-10-23] MEDS: Multivitamin With Minerals Tab PO SCH (08:24)
[2017-10-23] MEDS: VITS A C E PO SCH (08:26)
[2017-10-23] MEDS: ZINC PO SCH (08:26)
[2017-10-23] MEDS: COPPER PO SCH (08:26)
[2017-10-23] MEDS: Insulin Lispro (humaLOG) 100 Units/ml Inj SC SCH ×2 (08:27→11:59)
--- NOTE | 2017-10-23 11:23 | CP.PCM.PCO ---
Physician Communication Note - Physician Communication Note Physician Communication Note: Per Dr. Delcid, pt may transfer to TCU to continue IV abx x 7 more days
--- NOTE | 2017-10-23 14:41 | CP.PCM.DIS ---
Addendum entered and electronically signed by Amrit Ellis MD 10/24/17 17:54: Diabetes with hyperglycemia Original Note: <Amrit Ellis - Last Filed: 10/23/17 14:35> Provider - Provider Date of Admission: 10/20/17 00:40 Attending physician: Ciro Delcid MD Time Spent in preparation of Discharge (in minutes): 20 Diagnosis - Discharge Diagnosis (1) Cellulitis of left lower extremity Status: Acute Hospital Course - Lab Results Lab Results: Micro Results 10/19/17 22:09 Blood-Venous Blood Culture - Preliminary NO GROWTH AFTER 3 DAYS 10/19/17 21:50 Blood-Venous Blood Culture - Preliminary NO GROWTH AFTER 3 DAYS Most Recent Lab Values WBC 9.6 K/uL (4.8-10.8) 10/23/17 06:25 RBC 3.75 Mil/uL (3.80-5.20) L 10/23/17 06:25 Hgb 11.7 g/dL (12.0-16.0) L 10/23/17 06:25 Hct 35.0 % (34.0-47.0) 10/23/17 06:25 MCV 93.4 fl (81.0-99.0) 10/23/17 06:25 MCH 31.3 pg (27.0-31.0) H 10/23/17 06:25 MCHC 33.5 g/dL (33.0-37.0) 10/23/17 06:25 RDW 13.0 % (11.5-14.5) 10/23/17 06:25 Plt Count 246 K/uL (130-400) 10/23/17 06:25 MPV 9.3 fl (7.2-11.7) 10/19/17 18:54 Neut % (Auto) 87.2 % (50.0-75.0) H 10/19/17 18:54 Lymph % (Auto) 10.5 % (20.0-40.0) L 10/19/17 18:54 Clarke % (Auto) 2.0 % (0.0-10.0) 10/19/17 18:54 Eos % (Auto) 0.1 % (0.0-4.0) 10/19/17 18:54 Baso % (Auto) 0.2 % (0.0-2.0) 10/19/17 18:54 Neut # (Auto) 8.2 K/uL (1.8-7.0) H 10/19/17 18:54 Lymph # (Auto) 1.0 K/uL (1.0-4.3) 10/19/17 18:54 Clarke # (Auto) 0.2 K/uL (0.0-0.8) 10/19/17 18:54 Eos # (Auto) 0.0 K/uL (0.0-0.7) 10/19/17 18:54 Baso # (Auto) 0.0 K/uL (0.0-0.2) 10/19/17 18:54 PT 11.5 Seconds (9.8-13.1) 10/19/17 18:54 INR 1.0 10/19/17 18:54 APTT 27.8 Seconds (25.6-37.1) 10/19/17 18:54 pO2 20 mm/Hg (30-55) L 10/19/17 18:55 VBG pH 7.37 (7.32-7.43) 10/19/17 18:55 VBG pCO2 54 mmHg (40-60) 10/19/17 18:55 VBG HCO3 26.6 mmol/L 10/19/17 18:55 VBG Total CO2 32.9 mmol/L (22-28) H 10/19/17 18:55 VBG O2 Sat (Calc) 36.4 % (40-65) L 10/19/17 18:55 VBG Base Excess 4.5 mmol/L (0.0-2.0) H 10/19/17 18:55 VBG Potassium 4.0 mmol/L (3.6-5.2) 10/19/17 18:55 Sodium 140.0 mmol/L (132-148) 10/19/17 18:55 Chloride 100.0 mmol/L (98-107) 10/19/17 18:55 Glucose 352 mg/dL (65-105) H 10/19/17 18:55 Lactate 2.6 mmol/L (0.7-2.1) H 10/19/17 18:55 FiO2 21.0 % 10/19/17 18:55 Crit Value Called To deena Ramos md 10/19/17 18:55 Crit Value Called By Kentrell bowen 10/19/17 18:55 Crit Value Read Back Y 10/19/17 18:55 Blood Gas Notified Time 1907 10/19/17 18:55 Sodium 140 mmol/l (132-148) 10/23/17 06:25 Potassium 4.1 MMOL/L (3.6-5.0) 10/23/17 06:25 Chloride 104 mmol/L (98-107) 10/23/17 06:25 Carbon Dioxide 32 mmol/L (22-30) H 10/23/17 06:25 Anion Gap 8 (10-20) L 10/23/17 06:25 BUN 48 mg/dl (7-17) H 10/23/17 06:25 Creatinine 1.7 mg/dl (0.7-1.2) H 10/23/17 06:25 Est GFR ( Amer) 35 10/23/17 06:25 Est GFR (Non-Af Amer) 29 10/23/17 06:25 POC Glucose (mg/dL) 203 mg/dL (65-110) H 10/23/17 11:09 Random Glucose 140 mg/dL (65-105) H 10/23/17 06:25 Calcium 9.3 mg/dL (8.4-10.2) 10/23/17 06:25 Total Bilirubin 0.3 mg/dl (0.2-1.3) 10/21/17 06:30 AST 31 U/L (14-36) 10/21/17 06:30 ALT 29 U/L (9-52) 10/21/17 06:30 Alkaline Phosphatase 36 U/L (38-126) L 10/21/17 06:30 Troponin I < 0.0120 ng/mL (0.00-0.120) 10/19/17 19:39 NT-Pro-B Natriuret Pep 518 pg/ml (0-900) 10/19/17 18:54 Total Protein 5.7 G/DL (6.3-8.2) L 10/21/17 06:30 Albumin 3.5 g/dL (3.5-5.0) 10/21/17 06:30 Globulin 2.3 gm/dL (2.2-3.9) 10/21/17 06:30 Albumin/Globulin Ratio 1.5 (1.0-2.1) 10/21/17 06:30 Triglycerides 286 mg/DL (0-149) H D 10/21/17 06:30 Cholesterol 135 mg/dL (0-199) 10/21/17 06:30 LDL Cholesterol Direct 54 mg/dL (0-129) 10/21/17 06:30 HDL Cholesterol 37 MG/DL (30-70) 10/21/17 06:30 TSH 3rd Generation 0.03 mIU/ML (0.46-4.68) L 10/21/17 06:30 Venous Blood Potassium 4.0 mmol/L (3.6-5.2) 10/19/17 18:55 Urine Color Straw (YELLOW) 10/19/17 21:33 Urine Clarity Clear (Clear) 10/19/17 21:33 Urine pH 6.0 (5.0-8.0) 10/19/17 21:33 Ur Specific [place] 1.013 (1.003-1.030) 10/19/17 21:33 Urine Protein Negative mg/dL (NEGATIVE) 10/19/17 21:33 Urine Glucose (UA) >=500 mg/dL (Normal) 10/19/17 21:33 Urine Ketones Negative mg/dL (NEGATIVE) 10/19/17 21:33 Urine Blood Negative (NEGATIVE) 10/19/17 21:33 Urine Nitrate Negative (NEGATIVE) 10/19/17 21:33 Urine Bilirubin Negative (NEGATIVE) 10/19/17 21:33 Urine Urobilinogen 0.2-1.0 mg/dL (0.2-1.0) 10/19/17 21:33 Ur Leukocyte Esterase Neg Shawn/uL (Negative) 10/19/17 21:33 Urine RBC (Auto) < 1 /hpf (0-3) 10/19/17 21:33 Urine Microscopic WBC < 1 /hpf (0-5) 10/19/17 21:33 Ur Squamous Epith Cells < 1 /hpf (0-5) 10/19/17 21:33 Urine Bacteria Rare (<OCC) 10/19/17 21:33 Hyaline Casts 0-2 /hpf (0-2) 10/19/17 21:33 - Hospital Course Hospital Course: 82 yo F with pmhx of DM2, PVD, HTN, dyslipidemia, CHF admitted for L lower extremity cellulitis. Arterial and venous doppler showed possible cellulitis; no DVT. afebrile Tenderness resolved. Pain improved. pt given compression stockings. Stable for d/c. Pt requested for home rehab case dw Dr. Bhavin Ellis MD PGY2 Discharge Plan - Discharge Medications Prescriptions: Piperacill/Tazo 3.375gm in Dex [Zosyn 3.375 Gm IV] 3.375 gm IVPB Q8 7 Days bag - Follow Up Plan Condition: FAIR Disposition: TRANSF TO SNF Instructions: Cellulitis (DC) Additional Instructions: I was present during evaluation and discussed with Dr ellis re plans to discharge to TCU for further PT and continuation of iv antibiotics ciro Delcid M.D. <Ciro Delcid - Last Filed: 10/29/17 00:09> Provider - Provider Date of Admission: 10/20/17 00:40 Attending physician: Ciro Delcid MD Diagnosis - Discharge Diagnosis (1) Cellulitis of left lower extremity Status: Acute (2) CKD stage 3 due to type 2 diabetes mellitus Status: Acute (3) DJD (degenerative joint disease) Status: Acute (4) Diabetes mellitus type 2, uncontrolled Status: Acute (5) Hypertension Status: Acute Hospital Course - Lab Results Lab Results: Micro Results 10/19/17 22:09 Blood-Venous Blood Culture - Final NO GROWTH AFTER 5 DAYS 10/19/17 22:09 Blood-Venous Gram Stain - Final TEST NOT PERFORMED 10/19/17 21:50 Blood-Venous Blood Culture - Final NO GROWTH AFTER 5 DAYS 10/19/17 21:50 Blood-Venous Gram Stain - Final TEST NOT PERFORMED Most Recent Lab Values WBC 9.6 K/uL (4.8-10.8) 10/23/17 06:25 RBC 3.75 Mil/uL (3.80-5.20) L 10/23/17 06:25 Hgb 11.7 g/dL (12.0-16.0) L 10/23/17 06:25 Hct 35.0 % (34.0-47.0) 10/23/17 06:25 MCV 93.4 fl (81.0-99.0) 10/23/17 06:25 MCH 31.3 pg (27.0-31.0) H 10/23/17 06:25 MCHC 33.5 g/dL (33.0-37.0) 10/23/17 06:25 RDW 13.0 % (11.5-14.5) 10/23/17 06:25 Plt Count 246 K/uL (130-400) 10/23/17 06:25 MPV 9.3 fl (7.2-11.7) 10/19/17 18:54 Neut % (Auto) 87.2 % (50.0-75.0) H 10/19/17 18:54 Lymph % (Auto) 10.5 % (20.0-40.0) L 10/19/17 18:54 Clarke % (Auto) 2.0 % (0.0-10.0) 10/19/17 18:54 Eos % (Auto) 0.1 % (0.0-4.0) 10/19/17 18:54 Baso % (Auto) 0.2 % (0.0-2.0) 10/19/17 18:54 Neut # (Auto) 8.2 K/uL (1.8-7.0) H 10/19/17 18:54 Lymph # (Auto) 1.0 K/uL (1.0-4.3) 10/19/17 18:54 Clarke # (Auto) 0.2 K/uL (0.0-0.8) 10/19/17 18:54 Eos # (Auto) 0.0 K/uL (0.0-0.7) 10/19/17 18:54 Baso # (Auto) 0.0 K/uL (0.0-0.2) 10/19/17 18:54 PT 11.5 Seconds (9.8-13.1) 10/19/17 18:54 INR 1.0 10/19/17 18:54 APTT 27.8 Seconds (25.6-37.1) 10/19/17 18:54 pO2 20 mm/Hg (30-55) L 10/19/17 18:55 VBG pH 7.37 (7.32-7.43) 10/19/17 18:55 VBG pCO2 54 mmHg (40-60) 10/19/17 18:55 VBG HCO3 26.6 mmol/L 10/19/17 18:55 VBG Total CO2 32.9 mmol/L (22-28) H 10/19/17 18:55 VBG O2 Sat (Calc) 36.4 % (40-65) L 10/19/17 18:55 VBG Base Excess 4.5 mmol/L (0.0-2.0) H 10/19/17 18:55 VBG Potassium 4.0 mmol/L (3.6-5.2) 10/19/17 18:55 Sodium 140.0 mmol/L (132-148) 10/19/17 18:55 Chloride 100.0 mmol/L (98-107) 10/19/17 18:55 Glucose 352 mg/dL (65-105) H 10/19/17 18:55 Lactate 2.6 mmol/L (0.7-2.1) H 10/19/17 18:55 FiO2 21.0 % 10/19/17 18:55 Crit Value Called To deena Ramos md 10/19/17 18:55 Crit Value Called By Kentrell bowen 10/19/17 18:55 Crit Value Read Back Y 10/19/17 18:55 Blood Gas Notified Time 1907 10/19/17 18:55 Sodium 140 mmol/l (132-148) 10/23/17 06:25 Potassium 4.1 MMOL/L (3.6-5.0) 10/23/17 06:25 Chloride 104 mmol/L (98-107) 10/23/17 06:25 Carbon Dioxide 32 mmol/L (22-30) H 10/23/17 06:25 Anion Gap 8 (10-20) L 10/23/17 06:25 BUN 48 mg/dl (7-17) H 10/23/17 06:25 Creatinine 1.7 mg/dl (0.7-1.2) H 10/23/17 06:25 Est GFR ( Amer) 35 10/23/17 06:25 Est GFR (Non-Af Amer) 29 10/23/17 06:25 POC Glucose (mg/dL) 132 mg/dL (65-110) H 10/23/17 15:44 Random Glucose 140 mg/dL (65-105) H 10/23/17 06:25 Calcium 9.3 mg/dL (8.4-10.2) 10/23/17 06:25 Total Bilirubin 0.3 mg/dl (0.2-1.3) 10/21/17 06:30 AST 31 U/L (14-36) 10/21/17 06:30 ALT 29 U/L (9-52) 10/21/17 06:30 Alkaline Phosphatase 36 U/L (38-126) L 10/21/17 06:30 Troponin I < 0.0120 ng/mL (0.00-0.120) 10/19/17 19:39 NT-Pro-B Natriuret Pep 518 pg/ml (0-900) 10/19/17 18:54 Total Protein 5.7 G/DL (6.3-8.2) L 10/21/17 06:30 Albumin 3.5 g/dL (3.5-5.0) 10/21/17 06:30 Globulin 2.3 gm/dL (2.2-3.9) 10/21/17 06:30 Albumin/Globulin Ratio 1.5 (1.0-2.1) 10/21/17 06:30 Triglycerides 286 mg/DL (0-149) H D 10/21/17 06:30 Cholesterol 135 mg/dL (0-199) 10/21/17 06:30 LDL Cholesterol Direct 54 mg/dL (0-129) 10/21/17 06:30 HDL Cholesterol 37 MG/DL (30-70) 10/21/17 06:30 TSH 3rd Generation 0.03 mIU/ML (0.46-4.68) L 10/21/17 06:30 Venous Blood Potassium 4.0 mmol/L (3.6-5.2) 10/19/17 18:55 Urine Color Straw (YELLOW) 10/19/17 21:33 Urine Clarity Clear (Clear) 10/19/17 21:33 Urine pH 6.0 (5.0-8.0) 10/19/17 21:33 Ur Specific [place] 1.013 (1.003-1.030) 10/19/17 21:33 Urine Protein Negative mg/dL (NEGATIVE) 10/19/17 21:33 Urine Glucose (UA) >=500 mg/dL (Normal) 10/19/17 21:33 Urine Ketones Negative mg/dL (NEGATIVE) 10/19/17 21:33 Urine Blood Negative (NEGATIVE) 10/19/17 21:33 Urine Nitrate Negative (NEGATIVE) 10/19/17 21:33 Urine Bilirubin Negative (NEGATIVE) 10/19/17 21:33 Urine Urobilinogen 0.2-1.0 mg/dL (0.2-1.0) 10/19/17 21:33 Ur Leukocyte Esterase Neg Shawn/uL (Negative) 10/19/17 21:33 Urine RBC (Auto) < 1 /hpf (0-3) 10/19/17 21:33 Urine Microscopic WBC < 1 /hpf (0-5) 10/19/17 21:33 Ur Squamous Epith Cells < 1 /hpf (0-5) 10/19/17 21:33 Urine Bacteria Rare (<OCC) 10/19/17 21:33 Hyaline Casts 0-2 /hpf (0-2) 10/19/17 21:33
[2017-10-23 16:30] VITALS: BP 136/78; PULSE 69; RESP 20; TEMP 97.6; O2SAT 96
[2017-10-24] MEDS ORDERED: Ergocalciferol 50,000 Intl Units Cap PO SCH (09:00)
--- NOTE | 2017-11-05 15:44 | PQF ---
PROVIDER RESPONSE TEXT: Diastolic chronic chf REVIEWER QUERY TEXT: CHF Acuity and Type Patient is admitted with LLE Cellulitis. Congestive Heart Failure is documented in the Medical Recor d. Please document the type and acuity (includes probable or suspected) IF KNOWN. Such as: Type: -- Systolic -- Diastolic -- Combined -- Other, please specify Acuity: -- Chronic -- Other, please specify The patient's Clinical Indicators include: Documentation of CHF. Pro BNO NORMAL at 518. Medication includes PO Lasix. Old ECHO from 2014 in EMR: EF normal range See report Query created by: Iona Powers on 10/23/2017 1:01 PM Electronically signed by: Ciro Delcid MD 11/05/2017 3:41 PM
== END 2017-10-23 16:30 | DRG 603 ==
LOC: H.ER 16:42 → H.ERHOLD 10-20 00:40 → H.MEDSURG1 10-20 02:37
PROVIDERS: ADMIT Family Medicine; ATTEND Family Medicine
DX: L03.116 Cellulitis of left lower limb (principal); I13.0 Hypertensive heart and chronic kidney disease with heart failure and stage 1 through stage 4 chronic kidney disease, or unspecified chronic kidney disease; I50.32 Chronic diastolic (congestive) heart failure; H91.93 Unspecified hearing loss, bilateral; Z86.73 Personal history of transient ischemic attack (TIA), and cerebral infarction without residual deficits; E03.9 Hypothyroidism, unspecified; E11.65 Type 2 diabetes mellitus with hyperglycemia; E78.5 Hyperlipidemia, unspecified; E78.1 Pure hyperglyceridemia; E11.22 Type 2 diabetes mellitus with diabetic chronic kidney disease; N18.3 Chronic kidney disease, stage 3 (moderate); E11.51 Type 2 diabetes mellitus with diabetic peripheral angiopathy without gangrene; E78.00 Pure hypercholesterolemia, unspecified; Z86.718 Personal history of other venous thrombosis and embolism; F41.9 Anxiety disorder, unspecified; I25.10 Atherosclerotic heart disease of native coronary artery without angina pectoris; J44.9 Chronic obstructive pulmonary disease, unspecified; G47.30 Sleep apnea, unspecified; M19.90 Unspecified osteoarthritis, unspecified site; F03.90 Unspecified dementia, unspecified severity, without behavioral disturbance, psychotic disturbance, mood disturbance, and anxiety

== ENCOUNTER 2017-10-23 16:44 | Inpatient (IN) | payer OTHER ==
[2017-10-23 16:53] VITALS: BMI 31.8
[2017-10-23] MEDS ORDERED: Glucagon Recombinant 1 mg Inj IM PRN (17:30)
[2017-10-23] MEDS ORDERED: Dextrose 50% SYRINGE Inj (50 ml) IV PRN (17:30)
[2017-10-23] MEDS ORDERED: Ergocalciferol 50,000 Intl Units Cap PO SCH (17:30)
[2017-10-23] MEDS: Piperacillin/Tazobact 3.375 GM in Sodium Chloride 0.9% 100 ML IVPB SCH (20:48)
[2017-10-23] MEDS: COPPER PO SCH (21:55)
[2017-10-23] MEDS: VITS A C E PO SCH (21:55)
[2017-10-23] MEDS: ZINC PO SCH (21:55)
[2017-10-23] MEDS: Omega-3-Acid Ethyl Esters 1 GM Cap PO SCH (21:56)
[2017-10-23] MEDS ORDERED: Insulin Detemir 100 Units/ml Inj SC SCH (22:00)
[2017-10-23] MEDS: Insulin Lispro (humaLOG) 100 Units/ml Inj SC SCH (22:03)
[2017-10-24] MEDS: Piperacillin/Tazobact 3.375 GM in Sodium Chloride 0.9% 100 ML IVPB SCH ×3 (04:46→21:25)
[2017-10-24] MEDS: Pantoprazole 40 mg EC Tab PO SCH ×2 (06:13→08:17)
[2017-10-24] MEDS ORDERED: Levothyroxine 125 MCG TAB PO SCH (06:30)
[2017-10-24] MEDS: Insulin Lispro (humaLOG) 100 Units/ml Inj SC SCH ×4 (06:32→23:00)
[2017-10-24 06:37] LABS: MEAN CELL VOLUME 93.8 fl (81.0-99.0); MEAN CORPUSCULAR HEMOGLOBIN 31.6 pg (27.0-31.0); MEAN CORPUSCULAR HGB CONC 33.7 g/dL (33.0-37.0); RBC 3.79 Mil/uL (3.80-5.20); RED CELL DISTRIBUTION WIDTH 13.2 % (11.5-14.5); WHITE BLOOD COUNT 10.2 K/uL (4.8-10.8)
[2017-10-24 07:05] LABS: CALCIUM 9.2 mg/dL (8.4-10.2)
[2017-10-24] MEDS: Omega-3-Acid Ethyl Esters 1 GM Cap PO SCH ×3 (08:12→21:27)
[2017-10-24] MEDS: Multivitamin With Minerals Tab PO SCH (08:12)
[2017-10-24] MEDS: Enoxaparin 30 mg Syringe SC SCH (08:13)
[2017-10-24] MEDS: COPPER PO SCH ×4 (08:13→21:31)
[2017-10-24] MEDS: VITS A C E PO SCH ×4 (08:13→21:31)
[2017-10-24] MEDS: ZINC PO SCH ×4 (08:13→21:31)
[2017-10-24] MEDS ORDERED: Multivitamin With Minerals Tab PO SCH (09:00)
[2017-10-24] MEDS ORDERED: Pantoprazole 40 mg EC Tab PO SCH (09:00)
[2017-10-24] MEDS ORDERED: Omega-3-Acid Ethyl Esters 1 GM Cap PO SCH ×2 (09:00)
--- NOTE | 2017-10-24 16:21 | CP.PCM.HP ---
<Amrit Ellis - Last Filed: 10/24/17 16:18> History of Present Illness - History of Present Illness History of Present Illness: 82 yo F with pmhx DVT, DM2, htn, dyslipidemia, renal insufficiency, admitted to TCU for deconditioning and contiuation of IVABX x7 days Present on Admission - Present on Admission Any Indicators Present on Admission: Yes History of DVT/PE: Yes History of Uncontrolled Diabetes: Yes Urinary Catheter: No Past Patient History - Infectious Disease Hx of Infectious Diseases: None - Tetanus Immunizations Tetanus Immunization: Unknown - Past Medical History & Family History Past Medical History?: Yes - Past Social History Smoking Status: Never Smoked - CARDIAC Hx Congestive Heart Failure: Yes Hx Hypercholesterolemia: Yes Hx Hypertension: Yes Hx Peripheral Edema: Yes - PULMONARY Hx Chronic Obstructive Pulmonary Disease (COPD): Yes Hx Pneumonia: Yes Hx Sleep Apnea: Yes - NEUROLOGICAL Hx Dementia: Yes Hx Transient Ischemic Attacks (TIA): Yes - HEENT Hx HEENT Problems: Yes Other/Comment: Both ears hard of hearing - RENAL Hx Chronic Kidney Disease: Yes (RENAL INSUFICIENCY) - ENDOCRINE/METABOLIC Hx Hypothyroidism: Yes - HEMATOLOGICAL/ONCOLOGICAL Hx AIDS: No Hx Human Immunodeficiency Virus (HIV): No - INTEGUMENTARY Hx Dermatological Problems: Yes Hx Ward: Yes (SCARRING RIGHT HAND) Hx Cellulitis: Yes Other/Comment: SURGICAL TREATMENT TO RIGHT LOWER LEG, UNSURE OF EXACT DIAGNOSIS - MUSCULOSKELETAL/RHEUMATOLOGICAL Hx Falls: No - GASTROINTESTINAL Hx Gall Bladder Disease: Yes - GENITOURINARY/GYNECOLOGICAL Hx Genitourinary Disorders: No - PSYCHIATRIC Hx Substance Use: No - SURGICAL HISTORY Hx Cholecystectomy: Yes - ANESTHESIA Hx Anesthesia: Yes Hx Anesthesia Reactions: No Hx Malignant Hyperthermia: No Meds Allergies/Adverse Reactions: Allergies Allergy/AdvReac Type Severity Reaction Status Date / Time aspartame Allergy RASH Verified 10/23/17 16:53 naproxen [From Naprosyn] Allergy RASH Verified 10/23/17 16:53 esomeprazole magnesium AdvReac VOMITING Verified 10/23/17 16:53 [From Nexium] Results - Vital Signs Recent Vital Signs: Last Vital Signs Temp 97.0 F L 10/24/17 15:43 Pulse 57 L 10/24/17 15:43 Resp 20 10/24/17 15:43 BP 113/70 10/24/17 15:43 Pulse Ox 96 10/24/17 15:43 - Labs Result Diagrams: 10/24/17 06:10 10/24/17 06:10 Labs: Laboratory Results - last 24 hr 10/23/17 10/24/17 10/24/17 20:40 05:22 06:10 WBC 10.2 RBC 3.79 L Hgb 12.0 Hct 35.5 MCV 93.8 MCH 31.6 H MCHC 33.7 RDW 13.2 Plt Count 257 Sodium Potassium Chloride Carbon Dioxide Anion Gap BUN Creatinine Est GFR ( Amer) Est GFR (Non-Af Amer) POC Glucose (mg/dL) 172 H 128 H Random Glucose Calcium 10/24/17 10/24/17 06:10 10:32 WBC RBC Hgb Hct MCV MCH MCHC RDW Plt Count Sodium 140 Potassium 3.8 Chloride 104 Carbon Dioxide 31 H Anion Gap 9 L BUN 51 H Creatinine 1.7 H Est GFR ( Amer) 35 Est GFR (Non-Af Amer) 29 POC Glucose (mg/dL) 217 H Random Glucose 114 H Calcium 9.2 Assessment & Plan - Assessment and Plan (Free Text) Plan: 82 yo F with pmhx DVT, DM2, htn, dyslipidemia, renal insufficiency, admitted to TCU for deconditioning and contiuation of IVABX x7 days for lower extremity cellulitis Medication reconciliation was completed and updated as ordered. Extremity ultrasound were reviewed. from 10/20/2017 and 10/19/2017 Continue PT/OT. continue with current management. case dw Dr. Bhavin ellis md pgy2 <Ciro Delcid - Last Filed: 10/28/17 23:02> Results - Vital Signs Recent Vital Signs: Last Vital Signs Temp 96.8 F L 10/28/17 19:51 Pulse 63 10/28/17 19:51 Resp 20 10/28/17 19:51 BP 123/56 L 10/28/17 19:51 Pulse Ox 97 10/28/17 19:51 - Labs Result Diagrams: 10/24/17 06:10 10/26/17 05:35 Labs: Laboratory Results - last 24 hr 10/28/17 10/28/17 10/28/17 05:14 11:21 15:52 POC Glucose (mg/dL) 193 H 169 H 214 H 10/28/17 20:42 POC Glucose (mg/dL) 220 H Assessment & Plan - Assessment and Plan (Free Text) Plan: I was present during evaluation and discussed with Dr Rhonda mccarthy plans of care and mgt. Ciro Delcid M.D.
[2017-10-24] MEDS: Ergocalciferol 50,000 Intl Units Cap PO SCH (17:00)
[2017-10-24] MEDS: Insulin Detemir 100 Units/ml Inj SC SCH (21:26)
[2017-10-25] MEDS: Piperacillin/Tazobact 3.375 GM in Sodium Chloride 0.9% 100 ML IVPB SCH ×3 (05:28→21:47)
[2017-10-25] MEDS: Levothyroxine 100 MCG TAB PO SCH (05:30)
[2017-10-25] MEDS: Insulin Lispro (humaLOG) 100 Units/ml Inj SC SCH ×4 (06:39→22:53)
[2017-10-25] MEDS: Enoxaparin 30 mg Syringe SC SCH (08:03)
[2017-10-25] MEDS: Pantoprazole 40 mg EC Tab PO SCH (08:06)
[2017-10-25] MEDS: Omega-3-Acid Ethyl Esters 1 GM Cap PO SCH ×2 (08:06→21:50)
[2017-10-25] MEDS: ULORIC 40 MG PO SCH (08:07)
[2017-10-25] MEDS: Multivitamin With Minerals Tab PO SCH (08:07)
[2017-10-25] MEDS: COPPER PO SCH ×3 (08:08→21:48)
[2017-10-25] MEDS: VITS A C E PO SCH ×3 (08:08→21:48)
[2017-10-25] MEDS: ZINC PO SCH ×3 (08:08→21:48)
[2017-10-25] MEDS: Lidocaine 5% Patch TD SCH (16:55)
[2017-10-25] MEDS: Insulin Detemir 100 Units/ml Inj SC SCH (21:51)
[2017-10-26] MEDS: Piperacillin/Tazobact 3.375 GM in Sodium Chloride 0.9% 100 ML IVPB SCH ×3 (05:39→22:33)
[2017-10-26] MEDS: Levothyroxine 100 MCG TAB PO SCH (06:04)
[2017-10-26] MEDS: Insulin Lispro (humaLOG) 100 Units/ml Inj SC SCH ×4 (06:38→22:25)
[2017-10-26] MEDS: Lidocaine 5% Patch TD SCH (08:07)
[2017-10-26] MEDS: Omega-3-Acid Ethyl Esters 1 GM Cap PO SCH ×2 (08:08→22:32)
[2017-10-26] MEDS: Enoxaparin 30 mg Syringe SC SCH (08:08)
[2017-10-26] MEDS: VITS A C E PO SCH ×2 (08:09→22:32)
[2017-10-26] MEDS: COPPER PO SCH ×2 (08:09→22:32)
[2017-10-26] MEDS: Multivitamin With Minerals Tab PO SCH (08:09)
[2017-10-26] MEDS: ULORIC 40 MG PO SCH (08:09)
[2017-10-26] MEDS: Pantoprazole 40 mg EC Tab PO SCH (08:09)
[2017-10-26] MEDS: ZINC PO SCH ×2 (08:09→22:32)
[2017-10-26] MEDS: Insulin Detemir 100 Units/ml Inj SC SCH (22:29)
[2017-10-27] MEDS: Levothyroxine 100 MCG TAB PO SCH (06:30)
[2017-10-27] MEDS: Piperacillin/Tazobact 3.375 GM in Sodium Chloride 0.9% 100 ML IVPB SCH ×2 (06:32→13:46)
[2017-10-27] MEDS: Insulin Lispro (humaLOG) 100 Units/ml Inj SC SCH ×3 (06:45→16:27)
[2017-10-27] MEDS: ULORIC 40 MG PO SCH (08:42)
[2017-10-27] MEDS: Multivitamin With Minerals Tab PO SCH (08:43)
[2017-10-27] MEDS: Enoxaparin 30 mg Syringe SC SCH (08:43)
[2017-10-27] MEDS: Omega-3-Acid Ethyl Esters 1 GM Cap PO SCH ×2 (08:43→21:19)
[2017-10-27] MEDS: Lidocaine 5% Patch TD SCH (08:44)
[2017-10-27] MEDS: COPPER PO SCH ×3 (08:45→21:28)
[2017-10-27] MEDS: ZINC PO SCH ×3 (08:45→21:28)
[2017-10-27] MEDS: VITS A C E PO SCH ×3 (08:45→21:28)
[2017-10-27] MEDS: Pantoprazole 40 mg EC Tab PO SCH (08:46)
[2017-10-27] MEDS: Insulin Detemir 100 Units/ml Inj SC SCH (21:25)
[2017-10-28] MEDS: Insulin Lispro (humaLOG) 100 Units/ml Inj SC SCH ×5 (01:36→22:13)
[2017-10-28] MEDS ORDERED: Piperacillin/Tazobact 3.375 GM in Sodium Chloride 0.9% 100 ML IVPB SCH (05:33)
[2017-10-28] MEDS: Piperacillin/Tazobact 3.375 GM in Sodium Chloride 0.9% 100 ML IVPB SCH ×3 (05:54→21:00)
[2017-10-28] MEDS: Levothyroxine 100 MCG TAB PO SCH (06:28)
[2017-10-28] MEDS: Omega-3-Acid Ethyl Esters 1 GM Cap PO SCH ×2 (08:53→22:14)
[2017-10-28] MEDS: ULORIC 40 MG PO SCH (08:54)
[2017-10-28] MEDS: ZINC PO SCH ×2 (08:54→21:00)
[2017-10-28] MEDS: Enoxaparin 30 mg Syringe SC SCH (08:54)
[2017-10-28] MEDS: COPPER PO SCH ×2 (08:54→21:00)
[2017-10-28] MEDS: Lidocaine 5% Patch TD SCH (08:54)
[2017-10-28] MEDS: Multivitamin With Minerals Tab PO SCH (08:54)
[2017-10-28] MEDS: VITS A C E PO SCH ×2 (08:54→21:00)
[2017-10-28] MEDS: Pantoprazole 40 mg EC Tab PO SCH (08:55)
--- NOTE | 2017-10-28 15:53 | CP.PCM.PN ---
Subjective - Date & Time of Evaluation Date of Evaluation: 10/28/17 Time of Evaluation: 10:30 - Subjective Subjective: patient seen and examined at bedside. No acute events overnight. States some pain ankle not relieved with patch. no other complaints offered at this time. no fever/chills. tolerating po well. Objective - Vital Signs/Intake and Output Vital Signs (last 24 hours): Temp Pulse Resp BP Pulse Ox 96.8 F L 65 20 142/64 99 10/28/17 15:26 10/28/17 15:26 10/28/17 15:26 10/28/17 15:26 10/28/17 15:26 - Medications Medications: Current Medications Atorvastatin Calcium (Lipitor) 20 mg PO [facility] Last Admin: 10/27/17 21:18 Dose: 20 mg Clopidogrel Bisulfate (Plavix) 75 mg PO DAILY [facility] Last Admin: 10/28/17 08:54 Dose: 75 mg Cyclobenzaprine HCl (Flexeril) 5 mg PO TID PRN PRN Reason: Muscle spasm Dextrose (Dextrose 50% Inj) 0 ml IV STAT PRN; Protocol PRN Reason: Hypoglycemia Protocol Dextrose (Glutose 15) 0 gm PO ONCE PRN; Protocol PRN Reason: Hypoglycemia Protocol Enoxaparin Sodium (Lovenox) 30 mg SC DAILY [facility] PRN Reason: Protocol Last Admin: 10/28/17 08:54 Dose: 30 mg Ergocalciferol (Drisdol 50,000 Intl Units Cap) 1 cap PO WED [facility] Last Admin: 10/24/17 17:00 Dose: 1 cap Glucagon (Glucagen Diagnostic Kit) 0 mg IM STAT PRN; Protocol PRN Reason: Hypoglycemia Protocol Home Med (Uloric) 40 mg PO DAILY [facility] Last Admin: 10/28/17 08:54 Dose: 40 mg Home Med (Vits A,C,E/Zinc/Copper [Ra Vision-Gurmeet + Zinc Tablet]) 1 tab PO BID@ 0900,2100 [facility] Last Admin: 10/28/17 08:54 Dose: 1 tab Piperacillin Sod/Tazobactam (Sod 3.375 gm/ Sodium Chloride) 100 mls @ 100 mls/ hr IVPB Q8@0500,1300,2100 [facility] PRN Reason: Protocol Last Admin: 10/28/17 12:17 Dose: 100 mls/hr Insulin Detemir (Levemir) 15 units SC [facility] Last Admin: 10/27/17 21:25 Dose: 15 u Insulin Human Lispro (Humalog) 0 units SC ACCU-CHECK [facility] PRN Reason: Protocol Last Admin: 10/28/17 12:16 Dose: 2 u Levothyroxine Sodium (Synthroid) 100 mcg PO DAILY@0630 [facility] Last Admin: 10/28/17 06:28 Dose: 100 mcg Lidocaine HCl (Xylocaine 2% (Uro-Jet)) 1 ea TOP BID [facility] Multivitamins/Minerals (Therapeutic-M Tab) 1 tab PO DAILY [facility] Last Admin: 10/28/17 08:54 Dose: 1 tab [id number] Ethyl Esters (Lovaza) 2 gm PO Q12 [facility] Last Admin: 10/28/17 08:53 Dose: 2 gm Pantoprazole Sodium (Protonix Ec Tab) 40 mg PO DAILY [facility] Last Admin: 10/28/17 08:55 Dose: 40 mg Sevelamer Carbonate (Renvela) 800 mg PO TID [facility] Last Admin: 10/28/17 12:17 Dose: 800 mg Sitagliptin Phosphate (Januvia) 50 mg PO DAILY [facility] Last Admin: 10/28/17 08:53 Dose: 50 mg - Labs Labs: 10/24/17 06:10 10/26/17 05:35 - Constitutional Appears: Well, No Acute Distress - Head Exam Head Exam: ATRAUMATIC, NORMAL INSPECTION, NORMOCEPHALIC - Eye Exam Eye Exam: Normal appearance - Neck Exam Neck Exam: Normal Inspection - Respiratory Exam Respiratory Exam: Clear to Ausculation Bilateral, NORMAL BREATHING PATTERN - Cardiovascular Exam Cardiovascular Exam: REGULAR RHYTHM, +S1, +S2. absent: Murmur - GI/Abdominal Exam GI & Abdominal Exam: Soft, Normal Bowel Sounds. absent: Tenderness - Extremities Exam Extremities Exam: Normal Inspection. absent: Calf Tenderness - Back Exam Back Exam: NORMAL INSPECTION - Neurological Exam Neurological Exam: Alert, Awake, Oriented x3 - Psychiatric Exam Psychiatric exam: Normal Affect, Normal Mood - Skin Skin Exam: Dry, Intact, Normal Color, Warm Assessment and Plan - Assessment and Plan (Free Text) Assessment: 82 yo F with pmhx DVT, DM2, htn, dyslipidemia, renal insufficiency, admitted to TCU for deconditioning and contiuation of IVABX x7 days for lower extremity cellulitis plan c/w meds as ordered switch lidocaine patch to gel c/w PT/OT c/w zosyn
[2017-10-28] MEDS: Lidocaine 2% Jelly (Uro-Jet) TOP SCH (17:10)
[2017-10-28] MEDS: Insulin Detemir 100 Units/ml Inj SC SCH (22:15)
--- NOTE | 2017-10-28 23:05 | CP.PCM.PN ---
Subjective - Date & Time of Evaluation Date of Evaluation: 10/25/17 Time of Evaluation: 10:00 - Subjective Subjective: Patient continues to have elevated FBS Still with a lot of pain on the posterior aspect of the left leg Has no fever Doing well with Phys therapy Objective - Vital Signs/Intake and Output Vital Signs (last 24 hours): Temp Pulse Resp BP Pulse Ox 96.8 F L 63 20 123/56 L 97 10/28/17 19:51 10/28/17 19:51 10/28/17 19:51 10/28/17 19:51 10/28/17 19:51 - Medications Medications: Current Medications Atorvastatin Calcium (Lipitor) 20 mg PO [facility] Last Admin: 10/28/17 22:14 Dose: 20 mg Clopidogrel Bisulfate (Plavix) 75 mg PO DAILY [facility] Last Admin: 10/28/17 08:54 Dose: 75 mg Cyclobenzaprine HCl (Flexeril) 5 mg PO TID PRN PRN Reason: Muscle spasm Dextrose (Dextrose 50% Inj) 0 ml IV STAT PRN; Protocol PRN Reason: Hypoglycemia Protocol Dextrose (Glutose 15) 0 gm PO ONCE PRN; Protocol PRN Reason: Hypoglycemia Protocol Enoxaparin Sodium (Lovenox) 30 mg SC DAILY [facility] PRN Reason: Protocol Last Admin: 10/28/17 08:54 Dose: 30 mg Ergocalciferol (Drisdol 50,000 Intl Units Cap) 1 cap PO WED [facility] Last Admin: 10/24/17 17:00 Dose: 1 cap Glucagon (Glucagen Diagnostic Kit) 0 mg IM STAT PRN; Protocol PRN Reason: Hypoglycemia Protocol Home Med (Uloric) 40 mg PO DAILY [facility] Last Admin: 10/28/17 08:54 Dose: 40 mg Home Med (Vits A,C,E/Zinc/Copper [Ra Vision-Gurmeet + Zinc Tablet]) 1 tab PO BID@ 0900,2100 [facility] Last Admin: 10/28/17 21:00 Dose: 1 tab Piperacillin Sod/Tazobactam (Sod 3.375 gm/ Sodium Chloride) 100 mls @ 100 mls/ hr IVPB Q8@0500,1300,2100 [facility] PRN Reason: Protocol Last Admin: 10/28/17 21:00 Dose: 100 mls/hr Insulin Detemir (Levemir) 15 units SC [facility] Last Admin: 10/28/17 22:15 Dose: 15 u Insulin Human Lispro (Humalog) 0 units SC ACCU-CHECK [facility] PRN Reason: Protocol Last Admin: 10/28/17 22:13 Dose: Not Given Levothyroxine Sodium (Synthroid) 100 mcg PO DAILY@0630 [facility] Last Admin: 10/28/17 06:28 Dose: 100 mcg Lidocaine HCl (Xylocaine 2% (Uro-Jet)) 1 ea TOP BID [facility] Last Admin: 10/28/17 17:10 Dose: 1 applic Multivitamins/Minerals (Therapeutic-M Tab) 1 tab PO DAILY [facility] Last Admin: 10/28/17 08:54 Dose: 1 tab [id number] Ethyl Esters (Lovaza) 2 gm PO Q12 [facility] Last Admin: 10/28/17 22:14 Dose: 2 gm Pantoprazole Sodium (Protonix Ec Tab) 40 mg PO DAILY [facility] Last Admin: 10/28/17 08:55 Dose: 40 mg Sevelamer Carbonate (Renvela) 800 mg PO TID [facility] Last Admin: 10/28/17 17:10 Dose: 800 mg Sitagliptin Phosphate (Januvia) 50 mg PO DAILY [facility] Last Admin: 10/28/17 08:53 Dose: 50 mg - Labs Labs: 10/24/17 06:10 10/26/17 05:35 - Head Exam Head Exam: NORMAL INSPECTION - Eye Exam Eye Exam: Normal appearance - ENT Exam ENT Exam: Mucous Membranes Moist - Respiratory Exam Respiratory Exam: Clear to Ausculation Bilateral - Cardiovascular Exam Cardiovascular Exam: REGULAR RHYTHM - GI/Abdominal Exam GI & Abdominal Exam: Normal Bowel Sounds - Neurological Exam Neurological Exam: CN II-XII Intact Assessment and Plan (1) Cellulitis of left lower extremity Status: Acute (2) CKD stage 3 due to type 2 diabetes mellitus Status: Acute (3) Diabetes mellitus type 2, uncontrolled Status: Acute - Assessment and Plan (Free Text) Plan: Cont meds Con tx Cont iv antibiotics Cont PT
--- NOTE | 2017-10-28 23:09 | CP.PCM.PN ---
Subjective - Date & Time of Evaluation Date of Evaluation: 10/26/17 Time of Evaluation: 11:00 - Subjective Subjective: patient continues to do well Has no fever Still with tenderness on the left lower leg Accuchecks are still elevated. Objective - Vital Signs/Intake and Output Vital Signs (last 24 hours): Temp Pulse Resp BP Pulse Ox 96.8 F L 63 20 123/56 L 97 10/28/17 19:51 10/28/17 19:51 10/28/17 19:51 10/28/17 19:51 10/28/17 19:51 - Medications Medications: Current Medications Atorvastatin Calcium (Lipitor) 20 mg PO HS [facility] Last Admin: 10/28/17 22:14 Dose: 20 mg Clopidogrel Bisulfate (Plavix) 75 mg PO DAILY [facility] Last Admin: 10/28/17 08:54 Dose: 75 mg Cyclobenzaprine HCl (Flexeril) 5 mg PO TID PRN PRN Reason: Muscle spasm Dextrose (Dextrose 50% Inj) 0 ml IV STAT PRN; Protocol PRN Reason: Hypoglycemia Protocol Dextrose (Glutose 15) 0 gm PO ONCE PRN; Protocol PRN Reason: Hypoglycemia Protocol Enoxaparin Sodium (Lovenox) 30 mg SC DAILY [facility] PRN Reason: Protocol Last Admin: 10/28/17 08:54 Dose: 30 mg Ergocalciferol (Drisdol 50,000 Intl Units Cap) 1 cap PO WED [facility] Last Admin: 10/24/17 17:00 Dose: 1 cap Glucagon (Glucagen Diagnostic Kit) 0 mg IM STAT PRN; Protocol PRN Reason: Hypoglycemia Protocol Home Med (Uloric) 40 mg PO DAILY [facility] Last Admin: 10/28/17 08:54 Dose: 40 mg Home Med (Vits A,C,E/Zinc/Copper [Ra Vision-Gurmeet + Zinc Tablet]) 1 tab PO BID@ 0900,2100 [facility] Last Admin: 10/28/17 21:00 Dose: 1 tab Piperacillin Sod/Tazobactam (Sod 3.375 gm/ Sodium Chloride) 100 mls @ 100 mls/ hr IVPB Q8@0500,1300,2100 [facility] PRN Reason: Protocol Last Admin: 10/28/17 21:00 Dose: 100 mls/hr Insulin Detemir (Levemir) 15 units SC [facility] Last Admin: 10/28/17 22:15 Dose: 15 u Insulin Human Lispro (Humalog) 0 units SC ACCU-CHECK [facility] PRN Reason: Protocol Last Admin: 10/28/17 22:13 Dose: Not Given Levothyroxine Sodium (Synthroid) 100 mcg PO DAILY@0630 [facility] Last Admin: 10/28/17 06:28 Dose: 100 mcg Lidocaine HCl (Xylocaine 2% (Uro-Jet)) 1 ea TOP BID [facility] Last Admin: 10/28/17 17:10 Dose: 1 applic Multivitamins/Minerals (Therapeutic-M Tab) 1 tab PO DAILY [facility] Last Admin: 10/28/17 08:54 Dose: 1 tab [id number] Ethyl Esters (Lovaza) 2 gm PO Q12 [facility] Last Admin: 10/28/17 22:14 Dose: 2 gm Pantoprazole Sodium (Protonix Ec Tab) 40 mg PO DAILY [facility] Last Admin: 10/28/17 08:55 Dose: 40 mg Sevelamer Carbonate (Renvela) 800 mg PO TID [facility] Last Admin: 10/28/17 17:10 Dose: 800 mg Sitagliptin Phosphate (Januvia) 50 mg PO DAILY [facility] Last Admin: 10/28/17 08:53 Dose: 50 mg - Labs Labs: 10/24/17 06:10 10/26/17 05:35 - Head Exam Head Exam: NORMAL INSPECTION - Eye Exam Eye Exam: Normal appearance - Respiratory Exam Respiratory Exam: Clear to Ausculation Bilateral - Cardiovascular Exam Cardiovascular Exam: REGULAR RHYTHM - GI/Abdominal Exam GI & Abdominal Exam: Normal Bowel Sounds - Neurological Exam Neurological Exam: Awake Assessment and Plan (1) Cellulitis of left lower extremity Status: Acute (2) CKD stage 3 due to type 2 diabetes mellitus Status: Acute (3) Diabetes mellitus type 2, uncontrolled Status: Acute - Assessment and Plan (Free Text) Plan: Cont meds Cont tx Cont pain meds cont antibiotics
--- NOTE | 2017-10-28 23:11 | CP.PCM.PN ---
Subjective - Date & Time of Evaluation Date of Evaluation: 10/27/17 Time of Evaluation: 10:00 - Subjective Subjective: patient is doing well Still with persistent pain on the left lower leg Has no fever. accuchecks are still elevated Objective - Vital Signs/Intake and Output Vital Signs (last 24 hours): Temp Pulse Resp BP Pulse Ox 96.8 F L 63 20 123/56 L 97 10/28/17 19:51 10/28/17 19:51 10/28/17 19:51 10/28/17 19:51 10/28/17 19:51 - Medications Medications: Current Medications Atorvastatin Calcium (Lipitor) 20 mg PO HS [facility] Last Admin: 10/28/17 22:14 Dose: 20 mg Clopidogrel Bisulfate (Plavix) 75 mg PO DAILY [facility] Last Admin: 10/28/17 08:54 Dose: 75 mg Cyclobenzaprine HCl (Flexeril) 5 mg PO TID PRN PRN Reason: Muscle spasm Dextrose (Dextrose 50% Inj) 0 ml IV STAT PRN; Protocol PRN Reason: Hypoglycemia Protocol Dextrose (Glutose 15) 0 gm PO ONCE PRN; Protocol PRN Reason: Hypoglycemia Protocol Enoxaparin Sodium (Lovenox) 30 mg SC DAILY [facility] PRN Reason: Protocol Last Admin: 10/28/17 08:54 Dose: 30 mg Ergocalciferol (Drisdol 50,000 Intl Units Cap) 1 cap PO WED [facility] Last Admin: 10/24/17 17:00 Dose: 1 cap Glucagon (Glucagen Diagnostic Kit) 0 mg IM STAT PRN; Protocol PRN Reason: Hypoglycemia Protocol Home Med (Uloric) 40 mg PO DAILY [facility] Last Admin: 10/28/17 08:54 Dose: 40 mg Home Med (Vits A,C,E/Zinc/Copper [Ra Vision-Gurmeet + Zinc Tablet]) 1 tab PO BID@ 0900,2100 [facility] Last Admin: 10/28/17 21:00 Dose: 1 tab Piperacillin Sod/Tazobactam (Sod 3.375 gm/ Sodium Chloride) 100 mls @ 100 mls/ hr IVPB Q8@0500,1300,2100 [facility] PRN Reason: Protocol Last Admin: 10/28/17 21:00 Dose: 100 mls/hr Insulin Detemir (Levemir) [address] [facility] Last Admin: 10/28/17 22:15 Dose: 15 u Insulin Human Lispro (Humalog) 0 units SC ACCU-CHECK [facility] PRN Reason: Protocol Last Admin: 10/28/17 22:13 Dose: Not Given Levothyroxine Sodium (Synthroid) 100 mcg PO DAILY@0630 [facility] Last Admin: 10/28/17 06:28 Dose: 100 mcg Lidocaine HCl (Xylocaine 2% (Uro-Jet)) 1 ea TOP BID [facility] Last Admin: 10/28/17 17:10 Dose: 1 applic Multivitamins/Minerals (Therapeutic-M Tab) 1 tab PO DAILY [facility] Last Admin: 10/28/17 08:54 Dose: 1 tab [id number]-[id number] Ethyl Esters (Lovaza) 2 gm PO Q12 [facility] Last Admin: 10/28/17 22:14 Dose: 2 gm Pantoprazole Sodium (Protonix Ec Tab) 40 mg PO DAILY [facility] Last Admin: 10/28/17 08:55 Dose: 40 mg Sevelamer Carbonate (Renvela) 800 mg PO TID [facility] Last Admin: 10/28/17 17:10 Dose: 800 mg Sitagliptin Phosphate (Januvia) 50 mg PO DAILY [facility] Last Admin: 10/28/17 08:53 Dose: 50 mg - Labs Labs: 10/24/17 06:10 10/26/17 05:35 - Head Exam Head Exam: NORMAL INSPECTION - Eye Exam Eye Exam: Normal appearance - Respiratory Exam Respiratory Exam: NORMAL BREATHING PATTERN - Cardiovascular Exam Cardiovascular Exam: REGULAR RHYTHM - GI/Abdominal Exam GI & Abdominal Exam: Normal Bowel Sounds - Neurological Exam Neurological Exam: Awake, Oriented x3 Assessment and Plan (1) Cellulitis of left lower extremity Status: Acute (2) CKD stage 3 due to type 2 diabetes mellitus Status: Acute (3) Diabetes mellitus type 2, uncontrolled Status: Acute (4) Leg pain Status: Acute - Assessment and Plan (Free Text) Plan: Con tmeds Con tpain meds biofreeze massage area adjust levemir
[2017-10-29] MEDS: Levothyroxine 100 MCG TAB PO SCH (05:56)
[2017-10-29] MEDS: Piperacillin/Tazobact 3.375 GM in Sodium Chloride 0.9% 100 ML IVPB SCH ×3 (05:56→21:44)
[2017-10-29] MEDS: Insulin Lispro (humaLOG) 100 Units/ml Inj SC SCH ×5 (06:51→22:59)
[2017-10-29] MEDS: Omega-3-Acid Ethyl Esters 1 GM Cap PO SCH ×2 (08:03→21:37)
[2017-10-29] MEDS: Enoxaparin 30 mg Syringe SC SCH (08:05)
[2017-10-29] MEDS: Multivitamin With Minerals Tab PO SCH (08:07)
[2017-10-29] MEDS: ULORIC 40 MG PO SCH (08:09)
[2017-10-29] MEDS: VITS A C E PO SCH ×2 (08:09→21:37)
[2017-10-29] MEDS: ZINC PO SCH ×2 (08:09→21:37)
[2017-10-29] MEDS: Lidocaine 2% Jelly (Uro-Jet) TOP SCH ×2 (08:09→17:05)
[2017-10-29] MEDS: COPPER PO SCH ×2 (08:09→21:37)
[2017-10-29] MEDS: Pantoprazole 40 mg EC Tab PO SCH (08:12)
--- NOTE | 2017-10-29 12:13 | CP.PCM.PN ---
Subjective - Date & Time of Evaluation Date of Evaluation: 10/29/17 Time of Evaluation: 10:00 - Subjective Subjective: patient seen and examined at bedside. still continues to complain of left lower leg pain and swelling. no other complaints offered at this time. no fever/ chills. tolerating po well. Objective - Vital Signs/Intake and Output Vital Signs (last 24 hours): Temp Pulse Resp BP Pulse Ox 97.5 F L 63 19 139/71 96 10/29/17 09:00 10/29/17 09:00 10/29/17 09:00 10/29/17 09:00 10/29/17 09:00 - Medications Medications: Current Medications Acetaminophen (Tylenol 325mg Tab) 650 mg PO Q6 PRN PRN Reason: Pain, moderate (4-7) Atorvastatin Calcium (Lipitor) 20 mg PO HS [facility] Last Admin: 10/28/17 22:14 Dose: 20 mg Clopidogrel Bisulfate (Plavix) 75 mg PO DAILY [facility] Last Admin: 10/29/17 08:04 Dose: 75 mg Cyclobenzaprine HCl (Flexeril) 5 mg PO TID PRN PRN Reason: Muscle spasm Dextrose (Dextrose 50% Inj) 0 ml IV STAT PRN; Protocol PRN Reason: Hypoglycemia Protocol Dextrose (Glutose 15) 0 gm PO ONCE PRN; Protocol PRN Reason: Hypoglycemia Protocol Enoxaparin Sodium (Lovenox) 30 mg SC DAILY [facility] PRN Reason: Protocol Last Admin: 10/29/17 08:05 Dose: 30 mg Ergocalciferol (Drisdol 50,000 Intl Units Cap) 1 cap PO WED [facility] Last Admin: 10/24/17 17:00 Dose: 1 cap Gabapentin (Neurontin) 300 mg PO [facility] Glucagon (Glucagen Diagnostic Kit) 0 mg IM STAT PRN; Protocol PRN Reason: Hypoglycemia Protocol Home Med (Uloric) 40 mg PO DAILY [facility] Last Admin: 10/29/17 08:09 Dose: 40 mg Home Med (Vits A,C,E/Zinc/Copper [Ra Vision-Gurmeet + Zinc Tablet]) 1 tab PO BID@ 0900,2100 [facility] Last Admin: 10/29/17 08:09 Dose: 1 tab Piperacillin Sod/Tazobactam (Sod 3.375 gm/ Sodium Chloride) 100 mls @ 100 mls/ hr IVPB Q8@0500,1300,2100 [facility] PRN Reason: Protocol Last Admin: 10/29/17 05:56 Dose: 100 mls/hr Insulin Detemir (Levemir) 15 units SC HS [facility] Last Admin: 10/28/17 22:15 Dose: 15 u Insulin Human Lispro (Humalog) 0 units SC ACCU-CHECK [facility] PRN Reason: Protocol Last Admin: 10/29/17 12:09 Dose: Not Given Levothyroxine Sodium (Synthroid) 100 mcg PO DAILY@0630 [facility] Last Admin: 10/29/17 05:56 Dose: 100 mcg Lidocaine HCl (Xylocaine 2% (Uro-Jet)) 1 ea TOP BID [facility] Last Admin: 10/29/17 08:09 Dose: 1 applic Multivitamins/Minerals (Therapeutic-M Tab) 1 tab PO DAILY [facility] Last Admin: 10/29/17 08:07 Dose: 1 tab [id number]-[id number] Ethyl Esters (Lovaza) 2 gm PO Q12 [facility] Last Admin: 10/29/17 08:03 Dose: 2 gm Pantoprazole Sodium (Protonix Ec Tab) 40 mg PO DAILY [facility] Last Admin: 10/29/17 08:12 Dose: 40 mg Sevelamer Carbonate (Renvela) 800 mg PO TID [facility] Last Admin: 10/29/17 08:07 Dose: 800 mg Sitagliptin Phosphate (Januvia) 50 mg PO DAILY [facility] Last Admin: 10/29/17 08:07 Dose: 50 mg - Labs Labs: 10/24/17 06:10 10/26/17 05:35 - Constitutional Appears: Well, Non-toxic, No Acute Distress - Head Exam Head Exam: ATRAUMATIC, NORMAL INSPECTION, NORMOCEPHALIC - Eye Exam Eye Exam: Normal appearance - Respiratory Exam Respiratory Exam: Clear to Ausculation Bilateral, NORMAL BREATHING PATTERN - Cardiovascular Exam Cardiovascular Exam: REGULAR RHYTHM, +S1, +S2. absent: Murmur - GI/Abdominal Exam GI & Abdominal Exam: Soft, Normal Bowel Sounds. absent: Tenderness - Extremities Exam Extremities Exam: Normal Inspection, Pedal Edema (1+ lle), Tenderness (lle). absent: Calf Tenderness Additional comments: no erythema noted - Neurological Exam Neurological Exam: Alert, Awake, Oriented x3 - Psychiatric Exam Psychiatric exam: Normal Affect, Normal Mood - Skin Skin Exam: Normal Color, Warm Assessment and Plan - Assessment and Plan (Free Text) Assessment: 82 yo F with pmhx DVT, DM2, htn, dyslipidemia, renal insufficiency, admitted to TCU for deconditioning and contiuation of IVABX x7 days for lower extremity cellulitis plan c/w meds as ordered add tylenol and gapapentin obtain US of lle venous doppler to r/o dvt c/w PT/OT c/w enasyn
[2017-10-29 15:51] VITALS: RESP 20
[2017-10-29] MEDS: Lidocaine 2% GEL TOP SCH (17:08)
[2017-10-29] MEDS: Insulin Detemir 100 Units/ml Inj SC SCH (21:35)
[2017-10-30] MEDS: Piperacillin/Tazobact 3.375 GM in Sodium Chloride 0.9% 100 ML IVPB SCH ×3 (05:01→21:47)
[2017-10-30 06:01] LABS: HEMOGLOBIN 10.9 g/dL (12.0-16.0); MEAN CELL VOLUME 94.1 fl (81.0-99.0); MEAN CORPUSCULAR HEMOGLOBIN 31.7 pg (27.0-31.0); MEAN CORPUSCULAR HGB CONC 33.8 g/dL (33.0-37.0); RBC 3.42 Mil/uL (3.80-5.20); RED CELL DISTRIBUTION WIDTH 13.2 % (11.5-14.5); WHITE BLOOD COUNT 9.3 K/uL (4.8-10.8)
[2017-10-30 06:22] LABS: ALB/GLOB RATIO 1.2 (1.0-2.1); CALCIUM 8.9 mg/dL (8.4-10.2)
[2017-10-30] MEDS: Levothyroxine 100 MCG TAB PO SCH (07:00)
[2017-10-30] MEDS: Insulin Lispro (humaLOG) 100 Units/ml Inj SC SCH ×3 (07:00→17:02)
[2017-10-30] MEDS: Multivitamin With Minerals Tab PO SCH (08:51)
[2017-10-30] MEDS: Enoxaparin 30 mg Syringe SC SCH (08:52)
[2017-10-30] MEDS: Omega-3-Acid Ethyl Esters 1 GM Cap PO SCH ×2 (08:52→21:49)
[2017-10-30] MEDS: ZINC PO SCH ×2 (08:54→21:48)
[2017-10-30] MEDS: VITS A C E PO SCH ×2 (08:54→21:48)
[2017-10-30] MEDS: COPPER PO SCH ×2 (08:54→21:48)
[2017-10-30] MEDS: Pantoprazole 40 mg EC Tab PO SCH (08:54)
[2017-10-30] MEDS: ULORIC 40 MG PO SCH (08:55)
[2017-10-30] MEDS: Lidocaine 2% GEL TOP SCH ×2 (09:59→17:05)
[2017-10-30 19:37] VITALS: O2SAT 97
[2017-10-30] MEDS: Insulin Detemir 100 Units/ml Inj SC SCH (21:50)
[2017-10-31] MEDS: Insulin Lispro (humaLOG) 100 Units/ml Inj SC SCH ×2 (00:15→06:44)
[2017-10-31] MEDS: Piperacillin/Tazobact 3.375 GM in Sodium Chloride 0.9% 100 ML IVPB SCH (05:26)
[2017-10-31] MEDS: Levothyroxine 100 MCG TAB PO SCH (06:43)
[2017-10-31] MEDS: Omega-3-Acid Ethyl Esters 1 GM Cap PO SCH (08:07)
[2017-10-31] MEDS: VITS A C E PO SCH (08:08)
[2017-10-31] MEDS: Multivitamin With Minerals Tab PO SCH (08:08)
[2017-10-31] MEDS: ULORIC 40 MG PO SCH (08:08)
[2017-10-31] MEDS: COPPER PO SCH (08:08)
[2017-10-31] MEDS: ZINC PO SCH (08:08)
[2017-10-31] MEDS: Ergocalciferol 50,000 Intl Units Cap PO SCH (08:09)
[2017-10-31] MEDS: Pantoprazole 40 mg EC Tab PO SCH (08:09)
[2017-10-31] MEDS: Enoxaparin 30 mg Syringe SC SCH (08:10)
[2017-10-31] MEDS: Lidocaine 2% GEL TOP SCH (08:10)
[2017-10-31 09:17] VITALS: BP 145/66; PULSE 66; TEMP 97.7
--- NOTE | 2017-10-31 16:36 | CP.PCM.DIS ---
Provider - Provider Date of Admission: 10/23/17 16:54 Attending physician: Ciro Delcid MD Time Spent in preparation of Discharge (in minutes): 20 Diagnosis - Discharge Diagnosis (1) Cellulitis of left lower extremity Status: Acute Hospital Course - Lab Results Lab Results: Most Recent Lab Values WBC 9.3 K/uL (4.8-10.8) 10/30/17 05:30 RBC 3.42 Mil/uL (3.80-5.20) L 10/30/17 05:30 Hgb 10.9 g/dL (12.0-16.0) L 10/30/17 05:30 Hct 32.2 % (34.0-47.0) L 10/30/17 05:30 MCV 94.1 fl (81.0-99.0) 10/30/17 05:30 MCH 31.7 pg (27.0-31.0) H 10/30/17 05:30 MCHC 33.8 g/dL (33.0-37.0) 10/30/17 05:30 RDW 13.2 % (11.5-14.5) 10/30/17 05:30 Plt Count 199 K/uL (130-400) 10/30/17 05:30 Sodium 141 mmol/l (132-148) 10/30/17 05:30 Potassium 4.0 MMOL/L (3.6-5.0) 10/30/17 05:30 Chloride 111 mmol/L (98-107) H 10/30/17 05:30 Carbon Dioxide 27 mmol/L (22-30) 10/30/17 05:30 Anion Gap 7 (10-20) L 10/30/17 05:30 BUN 25 mg/dl (7-17) H 10/30/17 05:30 Creatinine 1.1 mg/dl (0.7-1.2) 10/30/17 05:30 Est GFR ( Amer) 58 10/30/17 05:30 Est GFR (Non-Af Amer) 48 10/30/17 05:30 POC Glucose (mg/dL) 219 mg/dL (65-110) H 10/31/17 11:08 Random Glucose 154 mg/dL (65-105) H 10/30/17 05:30 Calcium 8.9 mg/dL (8.4-10.2) 10/30/17 05:30 Total Bilirubin 0.3 mg/dl (0.2-1.3) 10/30/17 05:30 AST 25 U/L (14-36) 10/30/17 05:30 ALT 25 U/L (9-52) 10/30/17 05:30 Alkaline Phosphatase 22 U/L (38-126) L D 10/30/17 05:30 Total Protein 5.5 G/DL (6.3-8.2) L 10/30/17 05:30 Albumin 3.0 g/dL (3.5-5.0) L 10/30/17 05:30 Globulin 2.5 gm/dL (2.2-3.9) 10/30/17 05:30 Albumin/Globulin Ratio 1.2 (1.0-2.1) 10/30/17 05:30 - Hospital Course Hospital Course: pt seen and evaluated at bedside with Dr. Delcid 82 F with pmhx DVT, DM2, htn, dyslipidemia, renal insufficiency, admitted to TCU for deconditioning and contiuation of IVABX x7 days pt improved with PT and iv abx Dc home to f/u with pmd in 1 week Extensive med rec completed Case dw Dr. Bhavin quintana md pgy2 Discharge Exam - Head Exam Head Exam: ATRAUMATIC, NORMAL INSPECTION, NORMOCEPHALIC - Eye Exam Eye Exam: EOMI - Respiratory Exam Respiratory Exam: Clear to PA & Lateral, NORMAL BREATHING PATTERN. absent: Wheezes - Cardiovascular Exam Cardiovascular Exam: +S1, +S2 - GI/Abdominal Exam GI & Abdominal Exam: Normal Bowel Sounds, Soft. absent: Tenderness - Extremities Exam Extremities exam: pedal pulses present - Neurological Exam Neurological exam: Alert, CN II-XII Intact, Normal Gait, Oriented x3 - Psychiatric Exam Psychiatric exam: Normal Affect, Normal Mood Discharge Plan - Discharge Medications Prescriptions: Cyclobenzaprine [Flexeril] 5 mg PO TID PRN #30 tab PRN Reason: Muscle Spasm Gabapentin [Neurontin] 300 mg PO HS #30 cap Insulin Detemir [Levemir] 15 units SC HS #1 vial Levothyroxine [Synthroid] 100 mcg PO DAILY@0630 #30 tab Lidocaine 2% [Xylocaine 2%] 1 applic TOP BID #1 tube [id number]-7-[id number] Ethyl Esters 1 GM [Lovaza] 2 gm PO Q12 #60 sgl Pantoprazole [Protonix EC Tab] 40 mg PO DAILY #30 ect SITagliptin [Januvia] 50 mg PO DAILY #30 tab - Follow Up Plan Condition: GOOD Disposition: HOME/ ROUTINE Instructions: High Blood Pressure in Adults, Cellulitis (Skin Infection), Adult (DC), Cellulitis (DC), Cellulitis (GEN) Additional Instructions: please follow up with primary care provider in 7-10 days
== END 2017-10-31 11:45 | disposition home health service (06) | DRG 603 ==
LOC: H.TCU 16:54
PROVIDERS: ADMIT Family Medicine; ATTEND Family Medicine
PROC: 3E03329 Introduction of Other Anti-infective into Peripheral Vein, Percutaneous Approach (ICD-10-PCS; principal; 2017-10-23)
PROC: F07Z9FZ Gait Training/Functional Ambulation Treatment using Assistive, Adaptive, Supportive or Protective Equipment (ICD-10-PCS; 2017-10-23)
PROC: F08Z4FZ Home Management Treatment using Assistive, Adaptive, Supportive or Protective Equipment (ICD-10-PCS; 2017-10-24)
PROC: F07L6FZ Therapeutic Exercise Treatment of Musculoskeletal System - Lower Back / Lower Extremity using Assistive, Adaptive, Supportive or Protective Equipment (ICD-10-PCS; 2017-10-24)
DX: L03.116 Cellulitis of left lower limb (principal); I13.0 Hypertensive heart and chronic kidney disease with heart failure and stage 1 through stage 4 chronic kidney disease, or unspecified chronic kidney disease; N18.3 Chronic kidney disease, stage 3 (moderate); E11.22 Type 2 diabetes mellitus with diabetic chronic kidney disease; E11.65 Type 2 diabetes mellitus with hyperglycemia; F03.90 Unspecified dementia, unspecified severity, without behavioral disturbance, psychotic disturbance, mood disturbance, and anxiety; I50.9 Heart failure, unspecified; E78.5 Hyperlipidemia, unspecified; E78.00 Pure hypercholesterolemia, unspecified; E03.9 Hypothyroidism, unspecified; G47.30 Sleep apnea, unspecified; J44.9 Chronic obstructive pulmonary disease, unspecified; H91.93 Unspecified hearing loss, bilateral; Z86.718 Personal history of other venous thrombosis and embolism; Z86.73 Personal history of transient ischemic attack (TIA), and cerebral infarction without residual deficits; Z87.01 Personal history of pneumonia (recurrent); Z79.4 Long term (current) use of insulin; Z90.49 Acquired absence of other specified parts of digestive tract